=== PATIENT | male | born 1955 | race Caucasian/White ===

== ENCOUNTER → 2019-06-22 13:27 | Outpatient (BNVA) | payer MEDICARE, MEDICAID, SELFPAY | PROVIDERS: Visit Provider Nurse Practitioner Family | DX: R09.89 Other specified symptoms and signs involving the circulatory and respiratory systems (principal); R50.9 Fever, unspecified; R05 Cough; R06.02 Shortness of breath | CPT/HCPCS: 80053; 85025; 87071; 87400; 87635; 87880 ==

== ENCOUNTER → 2019-06-28 10:49 | Outpatient (BNVA) | payer MEDICARE, MEDICAID, SELFPAY | PROVIDERS: Visit Provider Nurse Practitioner Family | DX: R06.02 Shortness of breath (principal); I49.8 Other specified cardiac arrhythmias; W57.XXXA Bitten or stung by nonvenomous insect and other nonvenomous arthropods, initial encounter; B19.20 Unspecified viral hepatitis C without hepatic coma; R07.9 Chest pain, unspecified; F17.200 Nicotine dependence, unspecified, uncomplicated; J30.2 Other seasonal allergic rhinitis | CPT/HCPCS: 80053; 84484; 85025; 85379; 86618; 86666; 86757 ==

== ENCOUNTER → 2019-11-11 16:23 | Outpatient (BNVA) | payer MEDICARE, MEDICAID, SELFPAY | PROVIDERS: Visit Provider Nurse Practitioner Family | DX: M25.561 Pain in right knee (principal) | CPT/HCPCS: 73562 ==

== ENCOUNTER 2020-05-20 08:13 | Day surgery (SDC) | payer MEDICARE, MEDICAID, SELFPAY ==
[2020-05-20] VITALS (22 sets, daily range): BP systolic 76–146; BP diastolic 48–89; PULSE 54–88; RESP 14–26; TEMP 36.3–37.1; O2SAT 94–99; BMI 22.9
--- NOTE | 2020-05-20 08:35 | XRR_ITS ---
PROCEDURE INFORMATION: Exam: XR Chest Exam date and time: 05/20/2020 8:54 AM Age: 65 years old Clinical indication: Chest pain TECHNIQUE: Imaging protocol: XR of the chest Views: 1 view. COMPARISON: ME Chest 1 [place] [id number] 09/06/2018 9:26 AM FINDINGS: Lungs: COPD and interstitial prominence. Pleural spaces: No pleural effusion. Heart/Mediastinum: Normal configuration of the heart. Bones/joints: Degenerative change. XR/XR chest 1V portable [id number] IMPRESSION: COPD and interstitial prominence.
--- NOTE | 2020-05-20 08:38 | ECG_ITS ---
[facility] Test Date: 2020-05-20 Pat Name: Black Rose Department: Room: Gender: Male Medication Tech: : 1955 Requested By: Weston Douglas Order Number: [id number] Reading MD: JANIE PRINCE Measurements Intervals [place] Rate: 76 P: 77 OR: 151 QRS: 74 QRSD: 89 T: 60 QT: 362 QTc: 409 Interpretive Statements SINUS RHYTHM Compared to ECG 09/06/2018 09:15:35 No significant changes Electronically Signed On 05-20-2020 18:45:47 RADIO REPAIR TEACHER by JANIE PRINCE [id number]
[2020-05-20 08:44] LABS: Basophils # 0.1 10^3/uL (0.0-0.1); Basophils % 0.9 %; Eosinophils # 0.1 10^3/uL (0.0-0.8); Eosinophils % 1.6 %; Hematocrit 46.2 % (42.0-52.0); Hemoglobin 15.2 g/dL (11.7-16.6); Lymphocytes # 3.6 10^3/uL (0.8-4.8); Mean Corpuscular HGB Conc 32.9 g/dL (30.0-36.0); Mean Corpuscular Hemoglobin 29.9 pg (28.0-34.0); Mean Corpuscular Volume 90.9 fL (80-94); Mean Platelet Volume 10.9 fL (7.4-10.4); Monocytes # 0.6 10^3/uL (0.2-0.9); Monocytes % 7.9 %; Neutrophils # 3.71 10^3/uL (1.8-7.7); Neutrophils % 45.5 %; Nucleated Red Blood Cells % 0 %; Platelet Count 168 10^3/cmm (130-400); Red Blood Count 5.08 10^6/uL (4.1-5.3); Red Cell Distribution Width 13.2 % (12.1-15.1); White Blood Count 8.1 10^3/uL (4.0-10.0)
--- NOTE | 2020-05-20 08:53 | ED_ITS ---
HPI - Chest Pain General: Chief Complaint: Chest Pain Stated Complaint: chest pain Time Seen by Provider: 05/20/20 08:15 History of Present Illness: HPI narrative: 65-year-old male presents to the emergency room with complaints of chest pain. He is intermittently been having chest pain for the last 3 to 4 days. 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 Since then he has intermittently had chest pain it radiates up in the left side of his neck and left shoulder and the left upper arm he gets nauseous and short of breath with it. He has chest pain at the time that we seen him in the exam room he says it was worse when he was walking into the emergency room initially and a little bit better once he was placed on the cot but is still present. He has no known history of heart disease he is studiously avoided physicians for the last several years. He has hypertension on presentation and is a pack-a-day smoker for greater than 40 years. 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 MD complaint: chest pain Onset (ago): day(s) Timing of current episode: episodic and increasing Onset: during exertion Pain location: substernal and left chest Pain radiation: left arm and left shoulder Severity: moderate Quality: tightness and heaviness Relieving factors: nothing Exacerbating factors: exertion Associated symptoms: Reports diaphoresis, dyspnea, nausea and syncope (near syncopal episode); Deny abdominal pain, fever(s), leg edema, palpitations, sense of impending doom or vomiting Treatment prior to arrival: none Review of Systems Const: Reports: diaphoresis; Denies: fever(s) ENMT: Denies: throat pain, ear or mastoid pain, nasal discharge or nasal congestion Card: Reports: syncope (near syncopal episode); Denies: palpitations Resp: Reports: dyspnea GI: Reports: nausea; Denies: abdominal pain or vomiting : Denies: flank pain, dysuria, urinary frequency or urinary urgency Skin/Breast: Denies: rash or pruritus [facility] ED PFSH: Medical History (Updated 05/20/20 @ 11:18 by Weston Serrano DO) Hepatitis C Stroke due to intracerebral hemorrhage Social History Smoking and tobacco status: current every day smoker cigarettes Packs smoked per day: 1 Years cigarettes smoked: 35 Second hand smoke exposure: No Alcohol intake: never Lives independently: Yes Marital status: History of recent travel: No Current gender identity: Male Physical Exam Const: COMMON NORMALS: no acute distress GENERAL APPEARANCE: cooperative and comfortable ORIENTATION/CONSCIOUSNESS: Yes awake, Yes oriented to person, Yes oriented to place and Yes oriented to time HENMT: COMMON NORMALS: normocephalic, atraumatic and hearing grossly normal bilaterally HEAD & SCALP: normocephalic and atraumatic Neck/C-Spine: COMMON NORMALS: no JVD Resp: COMMON NORMALS: normal respiratory effort, No retractions, No use of accessory muscles and clear to auscultation bilaterally AUSCULTATION: clear to auscultation bilaterally Cardio: COMMON NORMALS: no JVD, regular rate, regular rhythm and No murmurs present (Cardio) RATE: regular rate RHYTHM: regular rhythm GI: COMMON NORMALS: Soft to palpation and No hepatosplenomegaly present AUSCULTATION: Yes normoactive bowel sounds PALPATION: Yes Soft to palpation, No Tenderness to palpation present (GI), No Guarding due to palpation present (GI) and Yes No hepatosplenomegaly present Extremity: COMMON NORMALS: normal to inspection, capillary refill normal, no clubbing, cyanosis or edema, no calf tenderness and no pedal edema Neuro: SENSORIUM/ORIENTATION: Yes oriented to person, Yes oriented to place and Yes oriented to time Skin: COMMON NORMALS: no rashes or lesions noted GENERAL SKIN EXAM: no rashes or lesions noted Course Vital Signs: Vital signs: Vital Signs Temperature 97.3 F L 05/20/20 08:17 Pulse Rate 80 05/20/20 09:33 Respiratory Rate 18 05/20/20 09:33 Blood Pressure 122/89 05/20/20 09:33 Pulse Oximetry 98 05/20/20 09:33 MDM - Chest Pain MDM Narrative: Medical decision making narrative: Patient recurrence of chest pain while at rest EKG shows very slight increase in ST leads in the precordial leads however they are not diagnostic for a STEMI. Reviewed with Dr. Soni he agreed. However patient did respond to nitro and continue to have persistent chest discomfort given his highly suggestive history Dr. Soni is decided to come straight from the emergency room to the Film Cutter. We will admit for melena or obvious pending his results. Lab Data: Labs: Lab Results 05/20/20 05/20/20 05/20/20 Range/Units 08:23 08:23 08:23 WBC 8.1 (4.0-10.0) 10^3/ uL RBC 5.08 (4.1-5.3) 10^6/u L Hgb 15.2 (11.7-16.6) g/dL Hct 46.2 (42.0-52.0) % MCV 90.9 (80-94) fL MCH 29.9 (28.0-34.0) pg MCHC 32.9 (30.0-36.0) g/dL RDW 13.2 (12.1-15.1) % Plt Count 168 (130-400) 10^3/c mm MPV 10.9 H (7.4-10.4) fL Neut % (Auto) 45.5 % Lymph % (Auto) 44.0 % [place] % (Auto) 7.9 % Eos % (Auto) 1.6 % Baso % (Auto) 0.9 % Neut # (Auto) 3.71 (1.8-7.7) 10^3/u L Lymph # (Auto) 3.6 (0.8-4.8) 10^3/u L [place] # (Auto) 0.6 (0.2-0.9) 10^3/u L Eos # (Auto) 0.1 (0.0-0.8) 10^3/u L Baso # (Auto) 0.1 (0.0-0.1) 10^3/u L Nucleated RBC % (a uto) 0 % Nucleated RBCs # 0.0 /100WBC Sodium 136 (136-145) mmol/L Potassium 4.4 (3.5-5.1) mmol/L Chloride 102 (98-107) mmol/L Carbon Dioxide 24 (22-29) mmol/L Anion Gap 14.4 (5-19) BUN 12 (8-23) mg/dL Creatinine 0.7 (0.7-1.2) mg/dL GFR Calculation 113.9 (90-130) mL/min Glucose 121 H (65-115) mg/dL Calculated Osmolal ity 283 L (285-295) mOsm/k g Calcium 9.1 (8.5-10.5) mg/dL Total Bilirubin 0.3 (0.15-1.2) mg/dL AST 32 (0-40) U/L ALT 45 H (0-41) U/L Alkaline Phosphata se 60 (40-130) IU/L Troponin T Baselin e 11 (0-15) ng/L Total Protein 8.1 (6.6-8.7) g/dL Albumin 4.3 (3.5-5.2) g/dL Globulin 3.8 (1.3-4.6) g/dL Discharge Plan Discharge Patient Disposition: Admitted As Inpatient Clinical Impression: Unstable angina, Tobacco abuse Condition: Stable Coding Level of Care Code ED Candy Decorator for [place] Fwd Exam Comprehensive
[2020-05-20 08:59] LABS: Alanine Aminotransferase 45 U/L (0-41); Albumin Level 4.3 g/dL (3.5-5.2); Alkaline Phosphatase 60 IU/L (40-130); Anion Gap 14.4 (5-19); Aspartate Amino Transferase 32 U/L (0-40); Blood Urea Nitrogen 12 mg/dL (8-23); Calcium 9.1 mg/dL (8.5-10.5); Carbon Dioxide 24 mmol/L (22-29); Chloride 102 mmol/L (98-107); Globulin 3.8 g/dL (1.3-4.6); Glomerular Filtration Rate 113.9 mL/min (90-130); Glucose 121 mg/dL (65-115); Osmolality Calculated 283 mOsm/kg (285-295); Potassium 4.4 mmol/L (3.5-5.1); Sodium 136 mmol/L (136-145); Total Bilirubin 0.3 mg/dL (0.15-1.2); Total Protein 8.1 g/dL (6.6-8.7)
[2020-05-20 09:00] LABS: Troponin(5th) Baseline 11 ng/L (0-15)
[2020-05-20] MEDS: morphine 4 mg/mL SDV 1 mL 2 MG IVP (09:01)
[2020-05-20] MEDS: nitroglycerin 1 gm/inch oint Pkt 1 INCH TOPICAL (09:01)
[2020-05-20] MEDS: aspirin 81 mg Chew Tablet 324 MG PO (09:01)
[2020-05-20] MEDS: heparin 5,000 unit/mL INJ 1 mL 4000 UNIT IVP (09:11)
[2020-05-20] MEDS: clopidogrel 300 mg Tablet 600 MG PO (09:12)
--- NOTE | 2020-05-20 09:16 | PC.PHAR ---
pt states he only takes aspirin 81mg daily-pt states he ran out of the 81mg tab so he took the 325mg tab today-pt states he hasnt been to the dr in a long time so doesnt take any medications
[2020-05-20] MEDS: nitroglycerin drip 50 MG/250 ML PREMIX IV (09:33)
--- NOTE | 2020-05-20 09:36 | PC.NURSE ---
nitropaste removed from Pt's chest prior to initiation of NTG gtt
--- NOTE | 2020-05-20 09:44 | PC.NURSE ---
pt prepped for syrup machine laborer at this time
--- NOTE | 2020-05-20 09:48 | XACV_ITS ---
Ht: 183 cm Wt: 77 kg BSA: 1.97 m2 Gender: Male : 1955 Any Known Allergies: No known allergies Exam Priority: Routine Procedure(s): Procedure Description: Diagnostic procedure Procedure Description: Left Heart Catheterization Procedure Description: Left ventriculography Procedure Description: Coronary Angiography Diagnostic Cath Status: Emergency Diagnostic Findings * LM has 0% stenosis. * CX has 0% stenosis. * pLAD to mLAD: Minimal luminal irregularities, BRYON: 3 flow. * pRCA to mRCA: Minimal luminal irregularities, BRYON: 3 flow. * Coronary angiography shows right dominance. Conclusions 1. No significant disease noted in the Left Main, LAD, Circumflex, or RCA coronary arteries. 2. All abdul are normal. 3. Normal left ventricular systolic function. Ejection fraction of 65%. Recommendations * Continue current medical management and risk factor modification. Ventriculography Ejection Fraction: 65.0 % Left Ventriculography Findings: * Normal left ventricle function without any wall motion abnormality. Pressures Phase:Rest AO : 93 / 60 ( 74 ) @ 4:23:00 AM 96 / 59 ( 74 ) @ 4:31:00 AM 95 / 59 ( 74 ) @ 4:31:00 AM 94 / 58 ( 73 ) @ 4:31:00 AM LV : 121 / -11 / @ 4:30:00 AM 99 / 0 / @ 4:31:00 AM 114 / 0 / @ 4:31:00 AM Valves Phase:DefaultPhase AV : 19.0 @ 10:40:51 AM AV Mean Gradient: 22.0 @ 10:40:51 AM Clinical Evaluation EBL: 5mL-10mL Procedural Details Procedure Consent Obtained. Pre-Procedure Time Out. Identified patient by full name and date of as verbalized by the patient/guarantor. Does the consent match the physician's order: Yes. Accurate & Complete Informed Consent: Yes. Inpatient/Outpatient History & Physical on Chart: Yes. If H&P is completed, is and addenduem needed: No; If yes, is the addendum complete: N/A. Visualize and Verify Site with Patient/Guarantor: N/A. Relevant Radiology Images available: N/A. Pre-op teaching completed and patient verbalized understanding. The risks, benefits, and alternatives of sedation and/or procedure were discussed by physician. The patient agrees to continue. Procedure started. [facility] Clinical Fraility Score: 3: Managing Well. Certified Green Building Engineer Indications: ACS <= 24 hours. Chest Pain Symptom Assessment: Typical Angina Symptoms. Cardiovascular Instability: No. Correct patient, site and procedure confirmed by cath team. PERRLA. Strong, equal hand contract officer bilaterally. Lungs clear x 5 lobes. IV Site on Arrival: 18 gauge in the left anticubital. IV Fluids: 0.9% NaCl at KVO. 0 mL infused prior to landscape and yardwork laborer. Pre Procedural Pulses: bilateral radial was 3+. Oxygen started at 2liters/min via nasal canula. bilateral groins was prepped with chloroprep then draped in the usual sterile fashion. Baseline sample Acquired. HR: 73 BPM. Physician arrived. Equipment: 6F - Radial. Cardiac Cath Pack. ACIST Manifold Kit Model BT 2000. Heparinized Saline (2 units/mL), 1000 mL bag. AP pads applied to patient. Physician scrubbed in. Immediate Pre-Procedure Time Out. Correct Patient: Yes; Correct Procedure: Yes; Correct Site: Yes; Correct Patient Position: Yes; Correct Supplies: Yes; Dried Flammable Prep: Yes; Blood Products Available: N/A;. Lidocaine 1% infiltrated to the right radial. Arterial access obtained. A TR 6FR Radial TIG 4.0 110cm was advanced over the wire and used for Left coronary angiography. Multiple views taken of left coronary artery. Catheter redirected to the RCA. Multiple views taken of right coronary artery. Catheter removed over the exchange wire. A 5 portuguese Angled Pig catheter in over wire. EDP Sample taken: LV 121/-12,6; HR: 76 BPM; SpO2: 90%. LV gram performed in JAY @ 10 mL/second for a total of 30 mL. EDP Sample taken: LV 99/0,10; HR: 67 BPM; SpO2: 95%. Pullback taken: LV 114/0,13; AO 96/59(74); Mean: 22mmHg, Peak to Peak: 19mmHg, SEP: 6sec/min; HR: 71 BPM; SpO2: 96%. Catheter removed over the exchange wire. Physician scrubbed out. A TR Band was successful obtaining hemostatsis at the Right Radial artery insertion site. TR band placed. Hemostasis obtained. Post Procedure: Pulses reassessed and unchanged. PERRLA. Strong, equal hand contract officer bilaterally. No VTE prophylaxis required. Medication's Wasted: Lidocaine 1% = 16 mL. Medication's Wasted: Heparin = 4000 units. Medication's Wasted: Nitro = 50 mg. Total IV fluids: 75 mL. Contrast type used: Omnipaque 300 mgI/mL, 500 mL bottle. Post-op diagnosis: normal coronaries. Estimated blood loss: 5mL-10mL. Procedure completed. Patient transferred by bed to 1st floor. Access Site Site: Right Radial artery Sheath Size: 6 Fr Hemostasis Method: TR Band Hemostasis Success: Successful Procedure Medications Start: 10:03 AM Stop: 10:03 AM Medication: Versed Amount: 1 mg Route: I.V. Start: 10:03 AM Stop: 10:03 AM Medication: Fentanyl Amount: 25 mcg Route: I.V. Start: 10:08 AM Stop: 10:08 AM Medication: Versed Amount: 1 mg Route: I.V. Start: 10:09 AM Stop: 10:09 AM Medication: Fentanyl Amount: 25 mcg Route: I.V. Start: 10:14 AM Stop: 10:14 AM Medication: Versed Amount: 1 mg Route: I.V. Start: 10:15 AM Stop: 10:15 AM Medication: Fentanyl Amount: 25 mcg Route: I.V. Start: 10:17 AM Stop: 10:17 AM Medication: Versed Amount: 1 mg Route: I.V. Start: 10:22 AM Stop: 10:22 AM Medication: Versed Amount: 1 mg Route: I.V. Start: 10:22 AM Stop: 10:22 AM Medication: Fentanyl Amount: 25 mcg Route: I.V. Start: 10:28 AM Stop: 10:28 AM Medication: Heparin Amount: 2000 units Route: I.V. Start: 10:28 AM Stop: 10:28 AM Medication: Versed Amount: 1 mg Route: I.V. I, the attending physician, have reviewed and verified all procedure medications. Yes, all medications given per verbal order History/Risk Factors Hypertension: No Dyslipidemia: No Peripheral Arterial Disease (PAD): No Myocardial Infarction (HI): No Obesity: No Renal Disease: No Tobacco Use: Current/Recent(w/in 1 year) Prior Interventions PCI: No CABG: No Valve Surgery: No Report Signatures Finalized by Fe Riojas MD on 05/29/2020 06:44 PM
--- NOTE | 2020-05-20 09:52 | PM.HP ---
Providers/Chief Complaint Chief Complaint: chest pain History of Present Illness Black Rose is a 65 year old male past medical history significant for 50 pack year of continuous tobacco abuse, hypertension does not know any other major medical problem was struggling with chest pain with increased in frequency and duration for the last 1 week upon mild to moderate exertion. This morning when he like to put on his clothes all of a sudden his chest pain became so intense that he passed out. He decided to come to ER. Initial cardiac markers and twelve-lead EKG but not suggestive of acute coronary syndrome however his chest pain relieved with nitroglycerin and comes back again now settled down at nitro drip very suspicious for unstable angina. Due to typical characteristics of chest pain syncope with chest pain and moderate risk for acute coronary syndrome I will proceed with left heart cath and PCI if indicated. Patient has been explained in detail by myself regarding all risk benefit and alternative for the procedure. He understand the risk for urgent emergent bypass surgery, arrhythmia, major minor bleed, stroke and worse case scenario . He told me that he will be able to take dual antiplatelet therapy. Review of Systems Const: Reports: diaphoresis; Denies: fever(s) ENMT: Denies: throat pain, ear or mastoid pain, nasal discharge or nasal congestion Card: Reports: syncope (near syncopal episode); Denies: palpitations Resp: Reports: dyspnea GI: Reports: nausea; Denies: abdominal pain or vomiting : Denies: flank pain, dysuria, urinary frequency or urinary urgency Musc: Denies: joint warmth Skin/Breast: Denies: rash or pruritus Medications/Allergies Home Medications Medication Instructions Recorded Confirmed Last Taken Type aspirin 325 mg PO ONCE 05/20/20 05/20/20 05/20/20 06:30 History aspirin [Aspir-81] 81 mg PO DAILY 05/20/20 05/20/20 Unknown History Allergies Allergy/AdvReac Type Severity Reaction Status Date / Time No Known Allergies Allergy Verified 05/20/20 09:16 PFSH Acute PFSH: Medical History (Updated 05/20/20 @ 10:03 by Fe Riojas MD) Hepatitis C Social History Smoking and tobacco status: current every day smoker cigarettes Packs smoked per day: 1 Years cigarettes smoked: 35 Second hand smoke exposure: No Alcohol intake: never Lives independently: Yes Marital status: History of recent travel: No Current gender identity: Male Vitals/I&O/Wt Last Vital Signs Temp 97.3 F L 05/20/20 08:17 Pulse 80 05/20/20 09:33 Resp 18 05/20/20 09:33 BP 122/89 05/20/20 09:33 Pulse Ox 98 05/20/20 09:33 Weight last 48 hrs Weight 169 lb Physical Exam Narrative: EXAM NARRATIVE: GENERAL: Patient is alert, awake and oriented x3. NECK: No jugular vein distension. HEENT: No cyanosis. No icterus. No pallor. HEART: Regular S1 and S2. No murmur, rub or gallop. LUNGS: Clear to auscultate bilaterally. ABDOMEN: Soft, nontender and nondistended. Positive bowel sounds. No guarding, rebound or tenderness. CENTRAL NERVOUS SYSTEM: Grossly nonfocal. EXTREMITIES: Lower extremities without edema bilaterally. Data : 05/20/20 08:23 05/20/20 08:23 A&P Assessment and plan (1) Chest pain: Characteristics of chest pain along with syncope with increased frequency and duration is suspicious for unstable angina. I will proceed with urgent angiogram and PCI if indicated. Patient has been loaded with 600 mg of Plavix aspirin and given heparin 4000 units. Further plan will be advised as per progress of the patient. Status: Acute Qualifiers: Chest pain type: unspecified Qualified Code(s): R07.9 - Chest pain, unspecified (2) Hepatitis C: He had treatment for hepatitis C I do not have any record for that. Status: Acute Qualifiers: Viral hepatitis chronicity: chronic Hepatic coma status: without hepatic coma Qualified Code(s): B18.2 - Chronic viral hepatitis C Attestations Medical Necessity Statement*: Patient is under observation for 24 hours. 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
--- NOTE | 2020-05-20 09:54 | P.CONIM_ITS ---
Providers/Reason For Consult Consulting Physican/Specialty*: Dr. Riojas, cardiology Reason for Consult*: Medical management. Attending Physician: Fe Riojas MD History of Present Illness History of Present Illness Black Rose is a 65 year old male presents to emergency department with off-and-on chest pain that initially started approximate 2 weeks ago and patient started taking 1 or 2 tablets of baby aspirin a day. Pain was described as exertional, substernal pressure-like with radiation to his neck and left shoulder arm. Approximately 1 week ago he had episodes of severe chest pain associated with nausea, diaphoresis and shortness of breath. 2 days ago he had similar episode when trying to load bull through gait and was unable to hold pressure and collapsed. Reports that he went home and spend in his bed 2 days. He would get severe pain with minimal movements. This morning he woke up and again collapsed and this time presented to ER. He took 325 mg aspirin this morning. In ER he was found to have very minimal, nonspecific what appeared to be ST elevation changes on EKG and continue to have chest pain in ER therefore patient is being taken to [facility] by Dr. Riojas for diagnosis of unstable angina. Past medical history significant for brain tumor and aneurysm requiring several surgical procedures/interventions in 2000. He had brain bleed related CVA at that time. Reports that occasionally he gets emotional and cries because of it. Denies being diabetic. Smokes 1 pack/day since age 32 and prior to that smoked only half pack per day since young age. Denies alcohol or illicit drug use. He is . His mother had cancer of the leg but he could not tell me any specifics. His father at age 27 from a airplane crash. 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 Review of Systems Const: Denies: fever(s) or chills Eyes: Denies: change in vision ENMT: Denies: throat pain or change in hearing Card: Reports: chest pain; Denies: edema or lightheadedness Resp: Denies: dyspnea or productive cough GI: Reports: nausea; Denies: abdominal pain, vomiting, dysphagia, diarrhea, constipation, hematochezia or melena : Reports: urinary frequency and urinary urgency; Denies: dysuria Musc: Denies: joint pain or joint swelling Skin/Breast: Denies: rash or erythema Neuro: Denies: headache(s) or weakness in extremities Psych: Denies: depression or suicidal ideation Endo: Denies: excessive sweating Rakesh/Lymph: Denies: easy bleeding or tender lymph nodes All/Imm: Denies: throat swelling Meds/Allergies Home Medications and Allergies Home Medications Medication Instructions Recorded Confirmed Last Taken Type aspirin 325 mg PO ONCE 05/20/20 05/20/20 05/20/20 06:30 History aspirin [Aspir-81] 81 mg PO DAILY 05/20/20 05/20/20 Unknown History Allergies Allergy/AdvReac Type Severity Reaction Status Date / Time No Known Allergies Allergy Verified 05/20/20 09:16 Current Medications Current Medications Generic Name Dose Route Start Last Admin Trade Name Freq PRN Reason Stop Dose Admin Nitroglycerin/Dextrose 50 mg in 250 mls @ 0 mls/hr 05/20/20 09:30 05/20/20 09:33 Nitroglycerin Drip IV 5 mcg/min .Q0M YOJANA 1.5 mls/hr Administration Protocol Per Protocol PFSH Acute PFSH: Medical History (Updated 05/20/20 @ 10:10 by Constantine Cortes MD) Hepatitis C Stroke due to intracerebral hemorrhage Social History Smoking and tobacco status: current every day smoker cigarettes Packs smoked per day: 1 Years cigarettes smoked: 35 Second hand smoke exposure: No Alcohol intake: never Lives independently: Yes Marital status: History of recent travel: No Current gender identity: Male Vitals/I&O/Wt Last Vital Signs Temp 97.3 F L 05/20/20 08:17 Pulse 80 05/20/20 09:33 Resp 18 05/20/20 09:33 BP 122/89 05/20/20 09:33 Pulse Ox 98 05/20/20 09:33 Weight last 48 hrs Weight 76.657 kg Physical Exam Const: COMMON NORMALS: no acute distress, patient oriented x3 and alert HENMT: COMMON NORMALS: normocephalic and atraumatic HEAD & SCALP: normocephalic and atraumatic Eye: COMMON NORMALS: EOMs intact bilaterally, conjunctivae normal and no scleral icterus CONJUNCTIVA: Yes conjunctivae normal Neck/C-Spine: COMMON NORMALS: no lymphadenopathy and no meningeal signs Lymph: LYMPHATIC: no lymphadenopathy noted Chest: COMMONS NORMALS: normal palpation of entire chest wall Resp: COMMON NORMALS: No use of accessory muscles and clear to auscultation bilaterally AUSCULTATION: clear to auscultation bilaterally Cardio: COMMON NORMALS: regular rate, regular rhythm and No murmurs present (Cardio) RATE: regular rate RHYTHM: regular rhythm OTHER: No lower extremity edema GI: COMMON NORMALS: Soft to palpation and non-tender PALPATION: Yes Soft to palpation RECTAL EXAM: Yes deferred : COMMON NORMALS: Yes no CVA tenderness BLADDER/KIDNEY EXAM: Yes no CVA tenderness Back/Pelvis: COMMON NORMALS: no CVA tenderness and thoracic and lumbar spine normal to inspection Extremity: COMMON NORMALS: normal to inspection and capillary refill normal Neuro: COMMON NORMALS: patient oriented x3 and no focal motor deficits SENSORIUM/ORIENTATION: Yes alert MENINGEAL SIGNS: Yes no meningeal signs Psych: COMMON NORMALS: mental status grossly normal, Normal thought process present and cooperative THOUGHT PROCESS: Normal thought process present Skin: COMMON NORMALS: no rashes or lesions noted GENERAL SKIN EXAM: no rashes or lesions noted A&P Assessment and plan (1) Unstable angina: Status: Acute (2) Tobacco abuse: Status: Acute Additional A&P Information PLAN: Awaiting coronary angiogram Continue with aspirin and statin and Plavix if needed Discussed with patient regarding importance of smoking cessation. Patient voiced understanding. Will discuss again before discharge. Check lipid profile in a.m. Add Protonix for GI protection Consult Attestations Medical Necessity Statement: Patient with unstable angina requires hospitalization for monitoring and treatment. I expect patient will require less than two midnights. Time Spent in Patient Care: Greater than 35 minutes Coding Level of Care Code Acute Limo Driver for [place] Joy Diagnoses Unstable angina I20.0 Tobacco abuse Z72.0
--- NOTE | 2020-05-20 10:38 | ECG_ITS ---
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
--- NOTE | 2020-05-20 11:18 | PC.NURSE ---
received into room 102 from cemetery laborer at 1055.report received.pt is drowsy,but easily awakened.denies pain.sr on monitor.right wrist with tr band on and inflated.right hand is warm to touch and with brisk capillary refill.palpable radial pulse distal to tr band. no hematoma noted.instructed in activity restrictions s/p radial artery procedure...and instructed to notify staff for any pain,bleeding,numbness...or for any concerns at all.pt verb understanding of instructions.
[2020-05-20] MEDS: HYDROcodone-acetaminophen 5-325 mg Tablet 1 TAB PO ×2 (12:53→18:10)
--- NOTE | 2020-05-20 13:30 | PC.NURSE ---
TR Band off No bleeding, hematoma, swelling. Radial pulse is palpable +3. Small bruising noted around wrist area. Pt is educated on activity restrictions on right hand. Pt verbalizes understanding. Call light within reach.
--- NOTE | 2020-05-20 14:38 | ECG_ITS ---
[facility] Test Date: 2020-05-20 Pat Name: Black Rose Department: Room: Gender: Male Channel Opener: : 1955 Requested By: Weston Douglas Order Number: [id number] Reading MD: JANIE PRINCE Measurements Intervals [place] Rate: 65 P: 66 IN: 164 QRS: 43 QRSD: 85 T: 28 QT: 358 QTc: 374 Interpretive Statements SINUS RHYTHM Compared to ECG 05/20/2020 08:19:11 No significant changes Electronically Signed On 05-20-2020 18:47:32 FISHER HAND LINE by JANIE PRINCE [id number]
[2020-05-20] MEDS: ALPRAZolam 0.25 mg Tablet PO (18:10)
[2020-05-20] MEDS: pantoprazole DR 40 mg Tablet PO (18:11)
--- NOTE | 2020-05-20 19:20 | CTR_ITS ---
PROCEDURE INFORMATION: Exam: CT Angiography Chest With Contrast Exam date and time: 05/20/2020 7:35 PM Age: 65 years old Clinical indication: Chest pain; Additional info: Severe chest pain TECHNIQUE: Imaging protocol: Computed tomographic angiography of the chest with contrast. 3D rendering (Not supervised by radiologist): MIP reconstructed images were created by the technologist. Radiation optimization: All CT scans at this facility use at least one of these dose optimization techniques: automated exposure control; mA and/or kV adjustment per patient size (includes targeted exams where dose is matched to clinical indication); or iterative reconstruction. Contrast material: OMNI 350; Contrast volume: 95 ml; Contrast route: INTRAVENOUS (IV); COMPARISON: CR (CHEST, ) 05/20/2020 8:45 AM RADIATION DOSE METRICS: Total DLP (mGy-cm): 663.61 FINDINGS: Pulmonary arteries: No pulmonary artery embolism identified. Aorta: Mild aortic arch atherosclerotic calcification without ectasia. The pulmonary artery phase bolus is suboptimal for imaging of the aorta and systemic arteries for intimal dissection in the absence of displaced intimal calcifications. No thoracic aortic aneurysm. Thyroid: The partially imaged bilateral thyroid lobes are unremarkable. Lungs: Right upper and lower lobe calcified pulmonary parenchymal granulomas. Mild-moderate apical paraseptal emphysema bilaterally. Centrilobular emphysematous focus right lower lobe measuring 8.3 mm, similar focus on the left measuring 12.8 mm. Left parahilar paraseptal bleb measuring 2.5 cm. A 5.0 x 2.9 x 6.2 mm noncalcified pulmonary nodule is noted in the medial apical segment of the right upper lobe (LOC 12.5). Pleural spaces: No pneumothorax. No pleural effusion. Heart: No pericardial effusion. Mitral annular calcification is present. LAD and RCA calcified coronary atherosclerosis. Mediastinal space: Right hilar granulomatous josé miguel calcifications are present. Lymph nodes: No enlarged lymph nodes. Bones/joints: Unremarkable. No acute fracture. Soft tissues: Unremarkable.
[2020-05-20] MEDS: iohexol 350 mg/mL 100 mL Btl IV (20:11)
[2020-05-20] MEDS: temazepam 15 mg Capsule PO (20:45)
[2020-05-20] MEDS: atorvastatin 40 mg Tablet 80 MG PO (20:45)
--- NOTE | 2020-05-20 21:45 | PC.NURSE ---
PT IS RESTING IN BED. PT C/O 5/10 PAIN NON SPECIFIC. PRN TYLENOL WAS REFUSED. PT WAS TAKEN TO CT VIA WHEELCHAIR BY MATERIAL STOCKKEEPER YARD. PT CAME BACK ASKING FOR SOMETHING TO HELP SLEEP. PRN RESTORIL WAS GIVEN. PRESSURE DRESSING TO RIGHT WRIST IS C/D/I. PULSE PALPABLE DISTAL OF INCISION SITE. WILL CONTINUE TO MONITOR.
[2020-05-21 00:08] VITALS: BP 91/61; PULSE 60; RESP 19; TEMP 37.1; O2SAT 93
[2020-05-21 03:18] VITALS: BP 92/53; PULSE 78; RESP 18; TEMP 37.7; O2SAT 97
[2020-05-21] MEDS: HYDROcodone-acetaminophen 5-325 mg Tablet 1 TAB PO (04:35)
--- NOTE | 2020-05-21 04:36 | PC.NURSE ---
PT C/O 05/24 CHEST PAIN. CHEST PAIN IS NON-RADIATING. PT STATES THAT IT IS MORE JUST LIKE HIS BACK HURTS BUT ITS HIS CHEST. PT STATES ITS MORE LIKE SKELETAL PAIN. WILL CONTINUE TO MONITOR.
[2020-05-21 05:31] LABS: Basophils # 0.1 10^3/uL (0.0-0.1); Basophils % 0.8 %; Eosinophils # 0.1 10^3/uL (0.0-0.8); Eosinophils % 1.9 %; Hematocrit 42.7 % (42.0-52.0); Hemoglobin 14.2 g/dL (11.7-16.6); Lymphocytes # 3.4 10^3/uL (0.8-4.8); Lymphocytes % 46.3 %; Mean Corpuscular HGB Conc 33.3 g/dL (30.0-36.0); Mean Corpuscular Hemoglobin 29.8 pg (28.0-34.0); Mean Corpuscular Volume 89.5 fL (80-94); Mean Platelet Volume 11.1 fL (7.4-10.4); Monocytes # 0.6 10^3/uL (0.2-0.9); Monocytes % 8.6 %; Neutrophils # 3.09 10^3/uL (1.8-7.7); Neutrophils % 42.3 %; Nucleated Red Blood Cells % 0 %; Platelet Count 156 10^3/cmm (130-400); Red Blood Count 4.77 10^6/uL (4.1-5.3); Red Cell Distribution Width 13.3 % (12.1-15.1); White Blood Count 7.3 10^3/uL (4.0-10.0)
[2020-05-21 05:48] VITALS: PULSE 64
--- NOTE | 2020-05-21 05:49 | PC.NURSE ---
PT IS RESTING IN BED. PT DENIES PAIN AT THIS TIME. DRESSING TO RIGHT WRIST IS C/D/I. PULSE IS PALPABLE DISTAL OF INCISION. WILL CONTINUE TO MONITOR.
[2020-05-21 05:57] LABS: Alanine Aminotransferase 58 U/L (0-41); Albumin Level 3.9 g/dL (3.5-5.2); Alkaline Phosphatase 56 IU/L (40-130); Anion Gap 12.2 (5-19); Aspartate Amino Transferase 46 U/L (0-40); Blood Urea Nitrogen 11 mg/dL (8-23); Calcium 8.8 mg/dL (8.5-10.5); Carbon Dioxide 23 mmol/L (22-29); Chloride 106 mmol/L (98-107); Chol HDL Ratio 3.84 mg/dL (1.0-5.00); Cholesterol 123 mg/dL (0-200); Globulin 3.2 g/dL (1.3-4.6); Glomerular Filtration Rate 113.9 mL/min (90-130); Glucose 91 mg/dL (65-115); HDL Cholesterol 32 mg/dL (60-100); LDL Cholesterol Calculated 66 mg/dL (50-129); LDL HDL Ratio 2.06 RATIO (0.00-3.22); Osmolality Calculated 283 mOsm/kg (285-295); Potassium 4.2 mmol/L (3.5-5.1); Sodium 137 mmol/L (136-145); Total Bilirubin 0.6 mg/dL (0.15-1.2); Total Protein 7.1 g/dL (6.6-8.7); Triglycerides 123 mg/dL (0-150)
[2020-05-21 07:22] VITALS: BP 108/74; PULSE 66; RESP 12; TEMP 36.7; O2SAT 96
[2020-05-21] MEDS: aspirin 81 mg EC Tablet PO (08:16)
[2020-05-21] MEDS: pantoprazole DR 40 mg Tablet PO (08:16)
--- NOTE | 2020-05-21 08:19 | PM.DCS ---
Discharge Providers Date of Discharge: May 21, 2020 Attending Provider at Discharge: Constantine Cortes MD Diagnoses at Discharge Discharge Diagnosis (1) Unstable angina: Status: Acute Permanent problem details: Ruled out (2) Tobacco abuse: Status: Acute (3) Chest pain: Status: Acute Permanent problem details: This appears to be musculoskeletal in origin and less likely GI Qualifiers: Chest pain type: unspecified Qualified Code(s): R07.9 - Chest pain, unspecified (4) Hepatitis C: Status: Acute Qualifiers: Viral hepatitis chronicity: chronic Hepatic coma status: without hepatic coma Qualified Code(s): B18.2 - Chronic viral hepatitis C (5) COPD (chronic obstructive pulmonary disease): Status: Acute Reason for Visit Reason for Visit: chest pain Hospital Course Hospital Course Patient presented with severe chest pain which appeared to be mostly exertional. Unstable angina was highly suspected and patient was taken to [facility] Ripsaw Operator. He did not have any significant coronary artery disease requiring intervention. Patient had CT of chest showing no evidence of PE or dissection. Patient's pain felt to be musculoskeletal in origin and possibly GI in etiology. We will discontinue aspirin for now and start patient on Protonix. I will also give patient oxycodone for pain control as needed. Patient does not want Tylenol because of underlying hepatitis C. I will request outpatient follow-up with Dr. Valdivia to be evaluated for hep C treatment. I will also request outpatient follow-up with Dr. Richmond for treatment of COPD. Patient is not interested in smoking cessation. Patient was told to discuss with primary care physician if he is ready to quit smoking and needs pharmacological help. This morning patient denies shortness of breath or chest pain reports that he is ready to go home as he has 150 cattles waiting for him. Physical Exam Narrative: EXAM NARRATIVE: Lungs are clear and heart is regular. Abdomen is soft and nontender with positive bowel sounds. No lower extremity edema Discharge Data Data Completed and Pending: Completed Studies During Hospitalization Category Date Time Status CT angio chest PE protcl 02002 Rout ine Cat Scan 05/20/20 19:[address] angio chest PE protcl [id number] Rout ine Cat Scan 05/21/20 12:02 Completed XR chest 1V alexi ble [id number] Stat Exams 05/20/20 08:35 Completed Pending at discharge Category Date Time Status PRODUCT SAFETY PROFESSIONAL request for service Routin e Exams 05/20/20 09:48 Ordered Complete Blood Co unt w/Auto AM LABS Lab 05/22/20 04:00 Ordered Complete Blood Co unt w/Auto AM LABS Lab 05/23/20 04:00 Ordered Comprehensive Met abolic Panel AM LA BS Lab 05/22/20 04:00 Ordered Comprehensive Met abolic Panel AM LA BS Lab 05/23/20 04:00 Ordered Magnesium AM LABS Lab 05/22/20 04:00 Ordered Magnesium AM LABS Lab 05/23/20 04:00 Ordered Labs from last 24 hours 05/21/20 05/21/20 05/20/20 04:24 04:24 08:23 WBC 7.3 RBC 4.77 Hgb 14.2 Hct 42.7 MCV 89.5 MCH 29.8 MCHC 33.3 RDW 13.3 Plt Count 156 MPV 11.1 H Neut % (Auto) 42.3 Lymph % (Auto) 46.3 [place] % (Auto) 8.6 Eos % (Auto) 1.9 Baso % (Auto) 0.8 Neut # (Auto) 3.09 Lymph # (Auto) 3.4 Chicot # (Auto) 0.6 Eos # (Auto) 0.1 Baso # (Auto) 0.1 Nucleated RBC % (a uto) 0 Nucleated RBCs # 0.0 Sodium 137 Potassium 4.2 Chloride 106 Carbon Dioxide 23 Anion Gap 12.2 BUN 11 Creatinine 0.7 GFR Calculation 113.9 Glucose 91 Calculated Osmolal ity 283 L Calcium 8.8 Magnesium 2.0 Total Bilirubin 0.6 AST 46 H ALT 58 H Alkaline Phosphata se 56 Troponin T Baselin e 11 Total Protein 7.1 Albumin 3.9 Globulin 3.2 Triglycerides 123 Cholesterol 123 LDL Cholesterol, C alc 66 HDL Cholesterol 32 L LDL/HDL Ratio 2.06 Cholesterol/HDL Ra leny 3.84 05/20/20 05/20/20 08:23 08:23 WBC 8.1 RBC 5.08 Hgb 15.2 Hct 46.2 MCV 90.9 MCH 29.9 MCHC 32.9 RDW 13.2 Plt Count 168 MPV 10.9 H Neut % (Auto) 45.5 Lymph % (Auto) 44.0 Chicot % (Auto) 7.9 Eos % (Auto) 1.6 Baso % (Auto) 0.9 Neut # (Auto) 3.71 Lymph # (Auto) 3.6 Chicot # (Auto) 0.6 Eos # (Auto) 0.1 Baso # (Auto) 0.1 Nucleated RBC % (a uto) 0 Nucleated RBCs # 0.0 Sodium 136 Potassium 4.4 Chloride 102 Carbon Dioxide 24 Anion Gap 14.4 BUN 12 Creatinine 0.7 GFR Calculation 113.9 Glucose 121 H Calculated Osmolal ity 283 L Calcium 9.1 Magnesium Total Bilirubin 0.3 AST 32 ALT 45 H Alkaline Phosphata se 60 Troponin T Baselin e Total Protein 8.1 Albumin 4.3 Globulin 3.8 Triglycerides Cholesterol LDL Cholesterol, C alc HDL Cholesterol LDL/HDL Ratio Cholesterol/HDL Ra leny Vitals: Last Vital Signs Temp 98.0 F 05/21/20 07:22 Pulse 66 05/21/20 07:22 Resp 12 05/21/20 07:22 BP 108/74 05/21/20 07:22 Pulse Ox 96 05/21/20 07:22 Discharge Plan Discharge Patient Disposition: Home Condition: Stable Prescriptions: New oxycodone 5 mg tablet 2.5 mg PO Q8H PRN (Reason: pain) Qty: 10 RF: 0 pantoprazole 40 mg Tablet,Delayed Release (Dr/Ec) 40 mg PO DAILY Qty: 30 RF: 0 Discontinued aspirin 325 mg Tablet 325 mg PO ONCE RF: 0 Aspir-81 81 mg Tablet,Delayed Release (Dr/Ec) 81 mg PO DAILY RF: 0 Discharge Orders: Discharge Order (Routine); Ordered 05/21/20 Ordered By: Constantine Cortes Referrals: Lamont Valdivia MD [Physician] - 1 week Datar,Jayden Alanis MD [Physician] - 1 week Discharge Diet: Advance as tolerated Discharge Activity: Resume usual activity and Increase activity as tolerated Patient Instructions: Oxycodone/Acetaminophen (By mouth), Pantoprazole (By mouth), Angina (DC), How to Stop Smoking (DC), Post Angiogram Home Care Instructions Activity Restrictions/Additional Instructions: Please call your doctor or present to emergency department if your condition worsens or you develop diarrhea, lightheadedness, fatigue or see blood in your stool or black stool. Please follow-up with Dr. Valdivia to be evaluated for treatment of hepatitis C. Please discuss with your doctor if you decide to quit smoking and need pharmacological help. Please note that I am requesting outpatient pulmonary follow-up as you have evidence of significant chronic obstructive pulmonary disease. Discharge Attestations Time Spent in Discharge Care*: greater than 30 min Quality Metrics Clinical Quality Measures During this hospital stay, did patient experience: None Coding Level of Care Code Acute Jewelry Polisher for g Fwd Diagnoses Unstable angina I20.0 Tobacco abuse Z72.0 Chest pain R07.9 Chest pain type: unspecified Hepatitis C B18.2 Viral hepatitis chronicity: chronic Hepatic coma status: without hepatic coma COPD (chronic obstructive pulmonary disease) J44.9
[2020-05-21 08:54] VITALS: BP 108/74; PULSE 66; RESP 12; TEMP 36.7; O2SAT 96
--- NOTE | 2020-05-21 09:12 | PC.NURSE ---
Discharge instructions given per the physician's orders. Patient verbalized understanding of teaching and medication changes and did not have any further questions. IV has been removed. Patient dressed self. No further needs identified at this time.
--- NOTE | 2020-05-21 12:02 | CTR_ITS ---
NOTE: Report was unsigned for reason: Order was edited. Original Signature date and time was: 05/20/20202031 PROCEDURE INFORMATION: Exam: CT Angiography Chest With Contrast Exam date and time: 05/20/2020 12:49 PM Age: 65 years old Clinical indication: Chest pain; Prior surgery; Surgery date: Post-operative (0-2 days); Surgery type: Cath done today; Additional info: Severe chest pain TECHNIQUE: Imaging protocol: Computed tomographic angiography of the chest with contrast. 3D rendering (Not supervised by radiologist): MIP and/or 3D reconstructed images were created by the technologist. Radiation optimization: All CT scans at this facility use at least one of these dose optimization techniques: automated exposure control; mA and/or kV adjustment per patient size (includes targeted exams where dose is matched to clinical indication); or iterative reconstruction. Contrast material: OMNI 350; Contrast volume: 95 ml; Contrast route: INTRAVENOUS (IV); COMPARISON: CR (CHEST, ) 05/20/2020 8:45 AM RADIATION DOSE METRICS: Total DLP (mGy-cm): 663.61 FINDINGS: Pulmonary arteries: No pulmonary embolus or aortic dissection. Aorta: Unremarkable. No aortic aneurysm. No aortic dissection. Lungs: Severe paraseptal emphysema. Mild centrilobular emphysema. Pleural spaces: Unremarkable. No pneumothorax. No pleural effusion. Heart: Mild calcified coronary artery disease. Lymph nodes: Shotty mediastinal adenopathy which may be reactive. Calcified right hilar nodes and/or mediastinal nodes and/or lung granulomas consistent with old granulomatous disease. Gallbladder and bile ducts: Surgical clips in the gallbladder fossa consistent with cholecystectomy. Bones/joints: Unremarkable. No acute fracture. Soft tissues: Unremarkable. [facility] CT/CT angio chest PE protcl [id number] IMPRESSION: 1. No pulmonary artery embolism identified. 2. Pulmonary emphysema. 3. Noncalcified right upper lobe pulmonary nodule. For patients at low risk (minimal or absent history of smoking and of other known risk factors), no routine follow-up is indicated. For patients at high risk (history of smoking or of other known risk factors), consider optional CT at 12 months. (Rosy et al., Fleischner Society, 2017). 4. Coronary atherosclerosis. Radiation Dose CTDIVOL = (mGy): DLP = 663.61 (mGy-cm)
== END 2020-05-21 09:15 | disposition home or self-care (01) ==
LOC: ER 08:36 → CCL 09:42 → CSU 11:18
PROVIDERS: Internal Medicine; Emergency Provider Family Medicine; Visit Provider Internal Medicine Cardiovascular Disease
DX: R07.9 Chest pain, unspecified (principal); B18.2 Chronic viral hepatitis C; F17.210 Nicotine dependence, cigarettes, uncomplicated; J44.9 Chronic obstructive pulmonary disease, unspecified; Z86.73 Personal history of transient ischemic attack (TIA), and cerebral infarction without residual deficits
CPT/HCPCS: 36415; 71045; 71275; 80053; 80061; 83735; 84484; 85025; 93005; 93452; 99291; C1769; C1887; C1894; J1644; J2250; J2270; J3010; J3490; J7030; Q9967

== ENCOUNTER 2020-05-28 09:53 | Emergency (ER) | payer MEDICARE, MEDICAID, SELFPAY ==
--- NOTE | 2020-05-28 09:55 | ECG_ITS ---
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 Measurements Intervals [place] Rate: 69 P: 76 SC: 163 QRS: 74 QRSD: 86 T: 71 QT: 345 QTc: 371 Interpretive Statements SINUS RHYTHM Compared to ECG 05/20/2020 14:56:15 Sinus bradycardia no longer present Electronically Signed On 05-28-2020 22:42:30 CDT by Adan Frye M.D. [id number] f
--- NOTE | 2020-05-28 09:55 | XRR_ITS ---
PROCEDURE INFORMATION: Exam: XR Chest Exam date and time: 05/28/2020 10:11 AM Age: 65 years old Clinical indication: Chest pain; Additional info: Cp TECHNIQUE: Imaging protocol: XR of the chest Views: 1 view. COMPARISON: CR (CHEST, ) 05/20/2020 8:45 AM FINDINGS: Lungs: There is mild pulmonary interstitial fibrosis. There is no airspace consolidation or pneumonia. Pleural spaces: Unremarkable. No pleural effusion. No pneumothorax. Heart/Mediastinum: Unremarkable. No cardiomegaly. Bones/joints: Unremarkable. XR/XR chest 1V portable [id number] IMPRESSION: Mild interstitial pulmonary fibrosis. No acute abnormality.
[2020-05-28 09:56] VITALS: BP 124/83; PULSE 91; RESP 16; TEMP 36.8; O2SAT 96; BMI 24.4
--- NOTE | 2020-05-28 10:04 | ED_ITS ---
HPI - Abdominal Pain General: Chief Complaint: Abdominal Pain Stated Complaint: CHEST PAIN Time Seen by Provider: 05/28/20 09:56 Source: patient Mode of arrival: ambulatory Limitations: no limitations History of Present Illness: HPI narrative: 65-year-old male who states he has been having abdominal pain over the last 2 to 3 days. He states been a very sharp pain he believes that he has an umbilical hernia. He states that he is cannot at his bellybutton and is quite painful to touch. He states he is also been having chest pain for over a week. He was admitted last week for chest pain and had a cardiac cath that was negative. He states that pain has not changed has been the same. He has had a CT of his chest that showed no acute abnormalities. Associated Symptoms: Denies chills, diarrhea, dysuria, fever(s), nausea and vomiting Review of Systems Const: Denies: fever(s), chills, body aches or change in appetite Eyes: Denies: blurry vision or eye discomfort ENMT: Denies: throat pain or dental pain Card: Reports: chest pain Resp: Denies: dyspnea GI: Reports: abdominal pain; Denies: nausea, vomiting or diarrhea : Denies: dysuria Musc: Denies: neck pain or back pain Skin/Breast: Denies: rash Neuro: Denies: headache(s) Psych: Denies: depression Rakesh/Lymph: Denies: easy bruising All/Imm: Denies: urticaria PFS ED PFSH: Medical History (Updated 05/28/20 @ 11:56 by Danuta Vegas MD) Hepatitis C Stroke due to intracerebral hemorrhage Social History Smoking and tobacco status: current every day smoker cigarettes Packs smoked per day: 1 Years cigarettes smoked: 35 Second hand smoke exposure: No Alcohol intake: never Lives independently: Yes Marital status: History of recent travel: No Current gender identity: Male Physical Exam Const: COMMON NORMALS: no acute distress, patient oriented x3 and healthy appearing HENMT: COMMON NORMALS: normocephalic and atraumatic HEAD & SCALP: normocephalic and atraumatic Eye: COMMON NORMALS: Equal, round and reactive pupils present and EOMs intact bilaterally PUPIL: Yes Equal, round and reactive pupils present Neck/C-Spine: COMMON NORMALS: full ROM and supple Chest: COMMONS NORMALS: normal inspection of the chest and normal palpation of entire chest wall Resp: COMMON NORMALS: normal respiratory effort, No retractions, No use of accessory muscles and clear to auscultation bilaterally AUSCULTATION: clear to auscultation bilaterally Cardio: COMMON NORMALS: regular rate, regular rhythm and No murmurs present (Cardio) RATE: regular rate RHYTHM: regular rhythm GI: COMMON NORMALS: Normal to inspection, nondistended, normoactive bowel sounds present and Soft to palpation PALPATION: Yes Soft to palpation OTHER: Umbilical hernia noted that is tender to touch that was easily reduced Extremity: COMMON NORMALS: normal to inspection and full ROM Neuro: COMMON NORMALS: patient oriented x3, moves all extremities and no focal motor deficits Psych: COMMON NORMALS: mental status grossly normal, Normal thought process present and cooperative THOUGHT PROCESS: Normal thought process present Skin: COMMON NORMALS: no rashes or lesions noted and no wounds GENERAL SKIN EXAM: no rashes or lesions noted Course Vital Signs: Vital signs: Vital Signs Temperature 98.2 F 05/28/20 09:56 Pulse Rate 69 05/28/20 11:01 Respiratory Rate 14 05/28/20 11:01 Blood Pressure 100/62 05/28/20 11:01 Pulse Oximetry 96 05/28/20 11:01 MDM - Abdominal Pain MDM Narrative: Medical decision making narrative: Patient presents with abdominal pain did have a umbilical hernia that I was able to reduce. After it was reduced he felt much improved. Patient CT scan is normal. His troponin here is normal as well. He had a recent cardiac cath and had no signs of blockage. He is stable for discharge and is to follow-up with PCP and return if worsening. Lab Data: Labs: Lab Results 05/28/20 05/28/20 05/28/20 Range/Units 10:15 10:15 10:15 WBC 7.6 (4.0-10.0) 10^3/ uL RBC 4.90 (4.1-5.3) 10^6/u L Hgb 14.8 (11.7-16.6) g/dL Hct 44.7 (42.0-52.0) % MCV 91.2 (80-94) fL MCH 30.2 (28.0-34.0) pg MCHC 33.1 (30.0-36.0) g/dL RDW 13.4 (12.1-15.1) % Plt Count 167 (130-400) 10^3/c mm MPV 11.0 H (7.4-10.4) fL Neut % (Auto) 46.5 % Lymph % (Auto) 42.9 % [place] % (Auto) 7.8 % Eos % (Auto) 1.6 % Baso % (Auto) 0.8 % Neut # (Auto) 3.54 (1.8-7.7) 10^3/u L Lymph # (Auto) 3.3 (0.8-4.8) 10^3/u L [place] # (Auto) 0.6 (0.2-0.9) 10^3/u L Eos # (Auto) 0.1 (0.0-0.8) 10^3/u L Baso # (Auto) 0.1 (0.0-0.1) 10^3/u L Nucleated RBC % (a uto) 0 % Nucleated RBCs # 0.0 /100WBC Sodium 136 (136-145) mmol/L Potassium 4.6 (3.5-5.1) mmol/L Chloride 103 (98-107) mmol/L Carbon Dioxide 26 (22-29) mmol/L Anion Gap 11.6 (5-19) BUN 9 (8-23) mg/dL Creatinine 0.7 (0.7-1.2) mg/dL GFR Calculation 113.9 (90-130) mL/min Glucose 111 (65-115) mg/dL Calculated Osmolal ity 281 L (285-295) mOsm/k g Calcium 9.0 (8.5-10.5) mg/dL Total Bilirubin 0.2 (0.15-1.2) mg/dL AST 37 (0-40) U/L ALT 52 H (0-41) U/L Alkaline Phosphata se 67 (40-130) IU/L Troponin T Baselin e 12 (0-15) ng/L Total Protein 7.6 (6.6-8.7) g/dL Albumin 4.4 (3.5-5.2) g/dL Globulin 3.2 (1.3-4.6) g/dL Lipase 34 (13-60) U/L Imaging Data ^: CXR: Attestation: I personally reviewed and interpreted this imaging study as follows: My impression: no acute abnormality CT Abd/Pel: Attestation: I personally reviewed and interpreted this imaging study as follows: Radiologist's impression: [facility] [address] [place] [address] CT Scan Report Signed Patient: Black Rose Unit #: [id number] : 1955 Age/Sex: 65 / M ADM Date: 05/28/20 Loc: ER Room/Bed: Attending Dr: Ordering Provider/Ordering MD: Danuta Vegas MD Date of Service: 05/28/20 Procedure(s): CT abdomen pelvis w con* [id number] Accession Number(s): [id number] Report Number: [id number] PROCEDURE INFORMATION: Exam: CT Abdomen And Pelvis With Contrast Exam date and time: 05/28/2020 10:45 AM Age: 65 years old Clinical indication: Abdominal pain; Additional info: Abd pain TECHNIQUE: Imaging protocol: Computed tomography of the abdomen and pelvis with contrast. Radiation optimization: All CT scans at this facility use at least one of these dose optimization techniques: automated exposure control; mA and/or kV adjustment per patient size (includes targeted exams where dose is matched to clinical indication); or iterative reconstruction. Contrast material: OMNI 300; Contrast volume: 95 ml; Contrast route: INTRAVENOUS (IV); COMPARISON: CT abdomen pelvis w con* [id number] 09/19/2018 3:47 AM RADIATION DOSE METRICS: Total DLP (mGy-cm): 1266.52 FINDINGS: Lungs: There is bibasilar compressive atelectasis. Small bulla are present in the lower lobes. There is a tiny benign calcified granuloma in the right lower lobe. Liver: Normal. No mass. Gallbladder and bile ducts: Cholecystectomy. There is stable mild bile duct dilatation which can be normal after cholecystectomy. Pancreas: Normal. No ductal dilation. Spleen: Normal. No splenomegaly. Adrenal glands: Normal. No mass. Kidneys and ureters: There is a punctate nonobstructing calcification in the lower pole of the left kidney. Stable small benign renal cysts are present. There is renal vascular calcification in the left hilum. There is no hydronephrosis. Stomach and bowel: Unremarkable. No obstruction. No mucosal thickening. Appendix: Appendectomy. Intraperitoneal space: Unremarkable. No free air. No significant fluid collection. Vasculature: There is atherosclerotic calcification of the aortic bifurcation and iliac arteries. There is no aneurysm. Lymph nodes: Unremarkable. No enlarged lymph nodes. Urinary bladder: Unremarkable as visualized. Reproductive: Unremarkable as visualized. Bones/joints: Degenerative changes are present in the spine predominantly at L5-S1 with disc space narrowing sclerosis and osteophytes. Soft tissues: There is a small fat containing umbilical hernia. CT/CT abdomen pelvis w con* [id number] IMPRESSION: 1. No acute abnormalities are seen in the abdomen and pelvis. 2. Cholecystectomy. 3. Nonobstructing left nephrolithiasis. EKG Data ^: EKG 1: Attestation: I personally reviewed and interpreted this EKG as follows: EKG interpretation date: 05/28/20 EKG interpretation time: 10:05 Interpretation: nsr hr [address] or t wave abnormalities qrs 86 qtc 364 Discharge Plan Discharge Patient Disposition: Home Clinical Impression: Umbilical hernia Qualifiers: Obstruction and gangrene presence: without obstruction or gangrene Qualified Code(s): K42.9 - Umbilical hernia without obstruction or gangrene Chest pain Qualifiers: Chest pain type: unspecified Qualified Code(s): R07.9 - Chest pain, unspecified Condition: Stable Prescriptions: No Action pantoprazole 40 mg Tablet,Delayed Release (Dr/Ec) 40 mg PO DAILY Qty: 30 RF: 0 oxycodone 5 mg tablet 2.5 mg PO Q8H PRN (Reason: pain) Qty: 10 RF: 0 Discharge Orders: Discharge ED (Routine); Ordered 05/28/20 Ordered By: Danuta Vegas Referrals: Vasyl Patel MD [Physician] - Discharge Diet: Advance as tolerated Discharge Activity: Resume usual activity Patient Instructions: Umbilical Hernia (ED) Coding Level of Care Code ED Multi Skilled Operator for Chg Fwd Exam Comprehensive
[2020-05-28 10:26] VITALS: RESP 14
[2020-05-28] MEDS: HYDROmorphone 1 mg/mL INJ 1 mL IVP (10:26)
[2020-05-28] MEDS: LORazepam 2 mg/mL INJ 1 mL 1 MG IVP (10:29)
[2020-05-28 10:33] VITALS: PULSE 71; RESP 16; O2SAT 96
--- NOTE | 2020-05-28 10:40 | CTR_ITS ---
PROCEDURE INFORMATION: Exam: CT Abdomen And Pelvis With Contrast Exam date and time: 05/28/2020 10:45 AM Age: 65 years old Clinical indication: Abdominal pain; Additional info: Abd pain TECHNIQUE: Imaging protocol: Computed tomography of the abdomen and pelvis with contrast. Radiation optimization: All CT scans at this facility use at least one of these dose optimization techniques: automated exposure control; mA and/or kV adjustment per patient size (includes targeted exams where dose is matched to clinical indication); or iterative reconstruction. Contrast material: OMNI 300; Contrast volume: 95 ml; Contrast route: INTRAVENOUS (IV); COMPARISON: CT abdomen pelvis w con* [id number] 09/19/2018 3:47 AM RADIATION DOSE METRICS: Total DLP (mGy-cm): 1266.52 FINDINGS: Lungs: There is bibasilar compressive atelectasis. Small bulla are present in the lower lobes. There is a tiny benign calcified granuloma in the right lower lobe. Liver: Normal. No mass. Gallbladder and bile ducts: Cholecystectomy. There is stable mild bile duct dilatation which can be normal after cholecystectomy. Pancreas: Normal. No ductal dilation. Spleen: Normal. No splenomegaly. Adrenal glands: Normal. No mass. Kidneys and ureters: There is a punctate nonobstructing calcification in the lower pole of the left kidney. Stable small benign renal cysts are present. There is renal vascular calcification in the left hilum. There is no hydronephrosis. Stomach and bowel: Unremarkable. No obstruction. No mucosal thickening. Appendix: Appendectomy. Intraperitoneal space: Unremarkable. No free air. No significant fluid collection. Vasculature: There is atherosclerotic calcification of the aortic bifurcation and iliac arteries. There is no aneurysm. Lymph nodes: Unremarkable. No enlarged lymph nodes. Urinary bladder: Unremarkable as visualized. Reproductive: Unremarkable as visualized. Bones/joints: Degenerative changes are present in the spine predominantly at L5-S1 with disc space narrowing sclerosis and osteophytes. Soft tissues: There is a small fat containing umbilical hernia. CT/CT abdomen pelvis w con* [id number] IMPRESSION: 1. No acute abnormalities are seen in the abdomen and pelvis. 2. Cholecystectomy. 3. Nonobstructing left nephrolithiasis. Radiation Dose CTDIVOL = (mGy): DLP = 1266.52 (mGy-cm)
[2020-05-28 11:01] VITALS: BP 100/62; PULSE 69; RESP 14; O2SAT 96
[2020-05-28 11:01] LABS: Basophils # 0.1 10^3/uL (0.0-0.1); Basophils % 0.8 %; Eosinophils # 0.1 10^3/uL (0.0-0.8); Eosinophils % 1.6 %; Hematocrit 44.7 % (42.0-52.0); Hemoglobin 14.8 g/dL (11.7-16.6); Lymphocytes # 3.3 10^3/uL (0.8-4.8); Lymphocytes % 42.9 %; Mean Corpuscular HGB Conc 33.1 g/dL (30.0-36.0); Mean Corpuscular Hemoglobin 30.2 pg (28.0-34.0); Mean Corpuscular Volume 91.2 fL (80-94); Monocytes # 0.6 10^3/uL (0.2-0.9); Monocytes % 7.8 %; Neutrophils # 3.54 10^3/uL (1.8-7.7); Neutrophils % 46.5 %; Nucleated Red Blood Cells % 0 %; Platelet Count 167 10^3/cmm (130-400); Red Cell Distribution Width 13.4 % (12.1-15.1); White Blood Count 7.6 10^3/uL (4.0-10.0)
[2020-05-28 11:15] LABS: Alanine Aminotransferase 52 U/L (0-41); Albumin Level 4.4 g/dL (3.5-5.2); Alkaline Phosphatase 67 IU/L (40-130); Anion Gap 11.6 (5-19); Aspartate Amino Transferase 37 U/L (0-40); Blood Urea Nitrogen 9 mg/dL (8-23); Carbon Dioxide 26 mmol/L (22-29); Chloride 103 mmol/L (98-107); Creatinine Clr Calc Pharmacy 121.0287; Globulin 3.2 g/dL (1.3-4.6); Glomerular Filtration Rate 113.9 mL/min (90-130); Glucose 111 mg/dL (65-115); Lipase 34 U/L (13-60); Osmolality Calculated 281 mOsm/kg (285-295); Potassium 4.6 mmol/L (3.5-5.1); Sodium 136 mmol/L (136-145); Total Bilirubin 0.2 mg/dL (0.15-1.2); Total Protein 7.6 g/dL (6.6-8.7)
[2020-05-28 11:17] LABS: Troponin(5th) Baseline 12 ng/L (0-15)
[2020-05-28] MEDS: iohexol 300 mg/mL 100 mL Btl IV (11:29)
--- NOTE | 2020-05-28 11:55 | ECG_ITS ---
[facility] Test Date: 2020-05-28 Pat Name: Black Rose Department: Room: Gender: Male Return Agent: : 1955 Requested By: Danuta Vegas Order Number: [id number] Reading MD: Adan Frye M.D. Measurements Intervals [place] Rate: 62 P: 77 ID: [id number] QRS: 71 QRSD: 90 T: 59 QT: 375 QTc: 382 Interpretive Statements SINUS RHYTHM Compared to ECG 05/28/2020 10:05:21 No significant changes Electronically Signed On 05-28-2020 22:49:13 CDT by Adan Frye M.D. [id number]
[2020-05-28 12:40] VITALS: BP 110/55; PULSE 75; RESP 16; O2SAT 95
== END 2020-05-28 12:42 | disposition home or self-care (01) ==
PROVIDERS: Emergency Provider Emergency Medicine
DX: K42.9 Umbilical hernia without obstruction or gangrene (principal); R07.9 Chest pain, unspecified; Z86.19 Personal history of other infectious and parasitic diseases; Z86.73 Personal history of transient ischemic attack (TIA), and cerebral infarction without residual deficits; F17.210 Nicotine dependence, cigarettes, uncomplicated
CPT/HCPCS: 71045; 74177; 80053; 83690; 84484; 85025; 93005; J1170; J2060; Q9967

== ENCOUNTER 2020-08-29 08:35 | Emergency (ER) | payer MEDICARE, MEDICAID, SELFPAY ==
[2020-08-29 08:42] VITALS: BP 118/83; PULSE 84; RESP 16; TEMP 36.7; O2SAT 97; BMI 21.7
[2020-08-29 08:46] VITALS: BP 108/70; PULSE 80; RESP 20; O2SAT 96
--- NOTE | 2020-08-29 08:58 | CT_ITS ---
WS: [id number] Exam: CT facial bones wo con* [id number] Date/Time of Exam: 08/29/2020 9:07 AM Reason For Exam: pain, trauma DLP: 784.[address] scans at [facility] use at least one of these dose optimization techniques: automat ed exposure control; mA and/or kV adjustment per patient size (includes targeted exams where dose is matched to clinical indication); or iterative reconstruction. The facial bones are evaluated in the axial plane with sagittal and coronal reformatted images. There is fracture deformity of the nasal bone age indeterminate. No other obvious facial fracture is noted. Normal orbits and optic globes. Minimal mucosal thickening in the ethmoid sinuses. Remaining p aranasal sinuses are clear. The mandible is intact. DJD of the right TMJ. The mastoids are clear. CT/CT facial bones wo con* [id number] IMPRESSION: 1. Fracture deformity of the nasal bone. Age is indeterminate. This may be a re cent fracture. 2. No other sign of facial fracture.
--- NOTE | 2020-08-29 08:58 | XR_ITS ---
WS: [id number] Exam: XR sacrum coccyx min 2V [id number] Date/Time of Exam: 08/29/2020 9:04 AM Reason For Exam: trauma No sacrococcygeal fracture noted. DJD of the SI joints. XR/XR sacrum coccyx min 2V [id number] IMPRESSION: 1. No sign of sacrococcygeal fracture.
--- NOTE | 2020-08-29 08:58 | XR_ITS ---
WS: [id number] Exam: XR cervical spine 3V* [id number] Date/Time of Exam: 08/29/2020 9:04 AM Reason For Exam: trauma No acute fracture or dislocation. Mild spondylosis at C4-5. Mild facet DJD at all levels. The odontoi d is intact. Paraspinal soft tissues appear normal. XR/XR cervical spine 3V* [id number] IMPRESSION: 1. No fracture or malalignment. Minimal degenerative changes.
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
--- NOTE | 2020-08-29 09:08 | PC.NURSE ---
6mg toradol order was typo, order was meant to be 60mg. 6mg order not given.
[2020-08-29] MEDS: ketorolac 30 mg/mL INJ 60 MG IM (10:02)
[2020-08-29 10:20] VITALS: BP 100/62; PULSE 76; RESP 18; TEMP 36.4; O2SAT 94
== END 2020-08-29 10:50 | disposition home or self-care (01) ==
PROVIDERS: Emergency Provider Family Medicine
DX: S30.0XXA Contusion of lower back and pelvis, initial encounter (principal); S02.2XXA Fracture of nasal bones, initial encounter for closed fracture; S09.8XXA Other specified injuries of head, initial encounter; Z86.19 Personal history of other infectious and parasitic diseases; Z86.73 Personal history of transient ischemic attack (TIA), and cerebral infarction without residual deficits; F17.210 Nicotine dependence, cigarettes, uncomplicated; W55.22XA Struck by cow, initial encounter
CPT/HCPCS: 70450; 70486; 72040; 72220; 96372; 99283; J1885

== ENCOUNTER 2021-05-27 03:04 | Emergency (ER) | payer MEDICARE, MEDICAID, SELFPAY ==
[2021-05-27 03:20] VITALS: BP 133/55; PULSE 97; RESP 16; TEMP 36.6; O2SAT 96; BMI 24.4
--- NOTE | 2021-05-27 03:45 | XRR_ITS ---
PROCEDURE INFORMATION: Exam: XR Left Shoulder Exam date and time: 05/27/2021 3:45 AM Age: 66 years old Clinical indication: Pain; Shoulder; Left; Additional info: L shoulder pain TECHNIQUE: Imaging protocol: XR Left shoulder. Views: 2 or more views. COMPARISON: CR (CHEST, ) 05/28/2020 10:19 AM FINDINGS: Bones/joints: Severe glenohumeral osteoarthritis. There are calcifications of the rotator cuff tendons. No acute fracture or dislocation. Soft tissues: Normal. XR/XR shoulder LT min 2V* [id number] IMPRESSION: 1. No acute fracture or dislocation. 2. Severe glenohumeral osteoarthritis. 3. Calcific tendinitis of the rotator cuff.
[2021-05-27] MEDS: HYDROmorphone 1 mg/mL INJ 1 mL IVP (04:05)
[2021-05-27] MEDS: ondansetron 4 MG Tablet PO (04:05)
--- NOTE | 2021-05-27 04:24 | W.ED.EXTPRO ---
HPI - Extremity Problem General: Chief complaint: Extremity Injury, Upper Stated complaint: left shoulder pain Time Seen by Provider: 05/27/21 03:06 Source: patient History of Present Illness: 66-year-old gentleman with a history of a bad rotator cuff . He notes that he struck it back O door 2 days ago with his left shoulder, and has had increased pain since. Tonight he could not take the pain anymore at home, so decided to come to the ER. No fever, no recent illness. MD Complaint: joint pain Onset (ago): day(s) Pain Consistency: constant Location: left and upper extremity Quality: stabbing and aching Radiation: none Relieving factors: nothing Exacerbating factors: range of motion Associated symptoms: Deny chest pain, fever(s), myalgias, rash or short of breath Review of Systems Const: Denies: fever(s) Card: Denies: chest pain Skin/Breast: Denies: rash PFSH ED PFSH: Medical History Hepatitis C Stroke due to intracerebral hemorrhage Social History Smoking and tobacco status: current every day smoker cigarettes Packs smoked per day: 1 Years cigarettes smoked: 35 Second hand smoke exposure: No Alcohol intake: never Lives independently: Yes Marital status: History of recent travel: No Current gender identity: Male Physical Exam Const: COMMON NORMALS: patient oriented x3 GENERAL APPEARANCE: cooperative; not comfortable and not ill appearing HENMT: COMMON NORMALS: normocephalic, atraumatic and Normal external nose present HEAD & SCALP: normocephalic and atraumatic FACE & SINUS: normal facial exam NOSE: Normal external nose present Eye: COMMON NORMALS: Equal, round and reactive pupils present and EOMs intact bilaterally PUPIL: Yes Equal, round and reactive pupils present Chest: COMMONS NORMALS: normal inspection of the chest Resp: COMMON NORMALS: normal respiratory effort and No use of accessory muscles Cardio: COMMON NORMALS: regular rate and regular rhythm RATE: regular rate RHYTHM: regular rhythm Extremity: NARRATIVE EXTREMITY EXAM: Exam the left shoulder reveals pain with range of motion. There is tenderness over the rotator cuff footprint proximal humeral head. There is mild acromial tenderness. No deformity. Pulses and sensation are intact. Neuro: COMMON NORMALS: patient oriented x3 Course Vital Signs: Vital signs: Vital Signs Temperature 97.8 F 05/27/21 03:20 Pulse Rate 97 05/27/21 03:20 Respiratory Rate 19 H 05/27/21 04:49 Blood Pressure 133/55 05/27/21 03:20 Pulse Oximetry 99 05/27/21 04:49 MDM - Extremity (Nontraumatic) Medical Decision Making X-ray of the left shoulder reveals moderately severe glenohumeral joint arthritic changes with inferior spurring. There is evidence of calcific rotator cuff tendinitis. He is given injection of pain medication here which helped. He will be allowed home with 2 Percocet. Tapering dose of steroid will be prescribed. Orthopedic follow-up. Lab Data Radiology Impressions Shoulder X-Ray 05/27/21 03:45 IMPRESSION: 1. No acute fracture or dislocation. 2. Severe glenohumeral osteoarthritis. 3. Calcific tendinitis of the rotator cuff. Discharge Plan Discharge Patient Disposition: Home Clinical Impression: Contusion of left shoulder, Localized osteoarthritis of left shoulder Condition: Stable Prescriptions: New Medrol (Cuong) 4 mg tablets,dose pack See Rx Instructions .ROUTE .COMPLEX Qty: 21 0RF Rx Instructions: orally per package directions Continued hydrocodone-acetaminophen 5-325 mg tablet 1 tab PO Q6H PRN (Reason: pain) Qty: 7 0RF Discharge Orders: Discharge ED (Routine); Ordered 05/27/21 Ordered By: Giancarlo Felix Patient Instructions: Osteoarthritis (ED), Opioid Safety Activity Restrictions/Additional Instructions: Return for fever, worsening pain despite treatment, numbness to the arm, shortness of breath, chest discomfort, any other concerning symptoms. Coding Level of Care Code ED Hammer Runner for Adamg Fwd Exam Detailed
[2021-05-27 04:49] VITALS: RESP 19; O2SAT 99
[2021-05-27] MEDS: oxyCODONE-APAP 5-325 mg Tablet 2 TAB PO (04:49)
--- NOTE | 2021-05-28 09:55 | DCPLANNER ---
Addendum entered by Charlene Frias 06/14/21 09:09: Patient had a follow up appointment scheduled for 06.12.[address] Corral at ortho - patient did attend appointment. Addendum entered by Charlene Frias 06/04/21 09:15: Patient has a follow up appointment scheduled for Saturday, June 12, 2021 at 10:[address] Corral at ortho. Clinic will call patient with appointment information. Original Note: accounting systems manager had message to schedule a follow up appointment for patient with ortho. accounting systems manager called the ortho clinic, spoke with Gabriella, gave clinic patients information. accounting systems manager was told that patients information would be printed and reviewed. Clinic will call patient with appointment information.
== END 2021-05-27 04:52 | disposition home or self-care (01) ==
PROVIDERS: Emergency Provider Emergency Medicine
DX: S40.012A Contusion of left shoulder, initial encounter (principal); M19.012 Primary osteoarthritis, left shoulder; Z86.19 Personal history of other infectious and parasitic diseases; Z86.73 Personal history of transient ischemic attack (TIA), and cerebral infarction without residual deficits; F17.210 Nicotine dependence, cigarettes, uncomplicated; W22.8XXA Striking against or struck by other objects, initial encounter
CPT/HCPCS: 73030; 96374; 99283; J1170; Q0162

== ENCOUNTER 2021-11-28 07:13 | Emergency (ER) | payer MEDICARE, MEDICAID, SELFPAY ==
[2021-11-28 07:18] VITALS: BP 124/75; PULSE 79; RESP 18; TEMP 36.8; O2SAT 97; BMI 21.8
--- NOTE | 2021-11-28 07:29 | XR_ITS ---
WS: [id number] XR knee RT 1-2V 44116 REASON FOR EXAM: pain FINDINGS: No fracture or focal bone lesion. The medial and lateral joint spaces of the right knee are intact and relatively well-preserved. Mild subchondral sclerosis in the medial and lateral knee joint compartment. Mild subchondral sclerosis and small osteophytosis of the patella with mild narrowing of the patellof emoral joint. The right knee is unchanged compared to 11/11/2019. XR/XR knee RT 1-2V 48953 IMPRESSION: No acute abnormality. Mild changes of osteoarthritis stable compared to the previous examination.
--- NOTE | 2021-11-28 07:56 | W.ED.GENADLT ---
HPI - General Adult General: Chief complaint: General Medical Stated complaint: Right knee pain Time Seen by Provider: 11/28/21 07:36 Source: patient Mode of arrival: ambulatory Limitations: no limitations History of Present Illness: 66-year-old male presents emergency room with complaints of right knee pain that began recently. Patient is very active. 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 Worsened suddenly when he got out of an excavator today no specific trauma that he can recall no previous surgeries to that knee. He has a secondary complaint patient mention weight loss over the last month. Onset (ago): minute(s) Location: right (Knee) Radiation: non-radiation Severity: moderate Quality: aching Pain Consistency: constant Relieving factors: none, immobilization and rest Exacerbating factors: movement and other (Walking weightbearing) Associated symptoms: Deny chest pain, confusion, cough, diaphoresis, decreased appetite, dyspnea, fevers/chills, headache(s), malaise, nausea, rash, palpitations, seizures, short of breath, syncope, vomiting or weakness Treatments prior to arrival: none Review of Systems Const: Denies: fever(s), chills, fatigue, malaise or diaphoresis Card: Denies: chest pain, palpitations or syncope Resp: Denies: dyspnea GI: Denies: nausea or vomiting Musc: Reports: joint pain; Denies: extremity pain, extremity swelling or joint swelling Skin/Breast: Denies: rash Neuro: Denies: headache(s) or confusion PFS ED PFSH: Medical History Hepatitis C Stroke due to intracerebral hemorrhage Social History Smoking and tobacco status: current every day smoker cigarettes Packs smoked per day: 1 Years cigarettes smoked: 35 Second hand smoke exposure: No Alcohol intake: never Lives independently: Yes Marital status: History of recent travel: No Current gender identity: Male Physical Exam Const: COMMON NORMALS: no acute distress GENERAL APPEARANCE: cooperative and comfortable ORIENTATION/CONSCIOUSNESS: Yes awake, Yes oriented to person, Yes oriented to place and Yes oriented to time HENMT: COMMON NORMALS: normocephalic, atraumatic and hearing grossly normal bilaterally HEAD & SCALP: normocephalic and atraumatic Resp: COMMON NORMALS: normal respiratory effort, No retractions, No use of accessory muscles and clear to auscultation bilaterally AUSCULTATION: clear to auscultation bilaterally Cardio: COMMON NORMALS: regular rate, regular rhythm and No murmurs present (Cardio) RATE: regular rate RHYTHM: regular rhythm Extremity: COMMON NORMALS: normal to inspection, capillary refill normal, no clubbing, cyanosis or edema, no calf tenderness and no pedal edema OTHER: No calf pain no swelling or tenderness there is a fullness in the popliteal fossa that is mildly tender. Neurovascularly intact. Drawer and Dusty's test are negative no deformities or varus or valgus formant stresses there is no joint effusion. Neuro: SENSORIUM/ORIENTATION: Yes oriented to person, Yes oriented to place and Yes oriented to time Skin: COMMON NORMALS: no rashes or lesions noted GENERAL SKIN EXAM: no rashes or lesions noted Course Vital Signs: Vital signs: Vital Signs Temperature 98.2 F 11/28/21 07:18 Pulse Rate 79 11/28/21 07:18 Respiratory Rate 18 11/28/21 07:18 Blood Pressure 124/75 11/28/21 07:18 Pulse Oximetry 97 11/28/21 07:18 Oxygen Delivery Me thod 11/28/21 07:18 [facility] - General Adult Medical Decision Making Based on exam suspect he has a Sims's cyst that has been aggravated. Start him on an anti-inflammatory. He has no signs of DVT at this time. Refer him to Ortho if persists. Medical Records I reviewed the patient's medical records. Lab Data I reviewed the patient's lab results. Discharge Plan Discharge Patient Disposition: Home Clinical Impression: Acute pain of right knee, Sims's cyst of knee Condition: Stable Prescriptions: New diclofenac sodium 75 mg tablet,delayed release (DR/EC) 75 mg PO Q12H PRN (Reason: pain) Qty: 20 0RF Discontinued naproxen [Naprosyn] 500 mg tablet 500 mg PO BID Qty: 60 0RF No Action hydrocodone-acetaminophen 5-325 mg tablet 1 tab PO Q6H PRN (Reason: pain) 7 Days Qty: 20 0RF Medrol (Cuong) 4 mg tablets,dose pack See Rx Instructions .ROUTE .COMPLEX Qty: 21 0RF Rx Instructions: orally per package directions Discharge Orders: Discharge ED (Routine); Ordered 11/28/21 Ordered By: Weston Serrano Discharge Diet: Usual diet Discharge Activity: Increase activity as tolerated Patient Instructions: Opioid Safety, Pain Management Activity Restrictions/Additional Instructions: Increase activity as tolerated. manager chemistry will make arrangements for her to follow-up with orthopedics. Coding Level of Care Code ED Flaker Operator for [place]
--- NOTE | 2021-11-28 11:32 | DCPLANNER ---
Addendum entered by Charlene Frias 12/04/21 08:25: information technology account manager received the following message from the front staff at ortho regarding follow up appointment: Left vm/mailed letter for pt to call and schedule with [facility] Osman under Dr. Corral for the bakers cyst on the right knee information technology account manager called patient, he stated that he was fine and did not need the appointment at this time. Original Note: information technology account manager had message to schedule a follow up appointment for patient with ortho. information technology account manager sent patients information to the front office staff at ortho. Patients information will be printed and reviewed. Clinic will call patient with appointment information.
== END 2021-11-28 07:58 | disposition home or self-care (01) ==
PROVIDERS: Emergency Provider Family Medicine
DX: M71.21 Synovial cyst of popliteal space [Baker], right knee (principal); F17.210 Nicotine dependence, cigarettes, uncomplicated
CPT/HCPCS: 73560; 99283

== ENCOUNTER 2022-04-20 11:54 | Emergency (ER) | payer MEDICARE, MEDICAID, SELFPAY ==
[2022-04-20 12:31] VITALS: BP 134/84; PULSE 84; RESP 19; TEMP 37.2; O2SAT 96; BMI 21.9
--- NOTE | 2022-04-20 12:44 | ECG_ITS ---
[facility] Test Date: 2022-04-20 Pat Name: Black Rose Department: Room: Gender: Male Envelope Folding Machine Operator: : 1955 Requested By: Scooter Goldberg Order Number: [id number] Linda MD: Zamzam Ray M.D. Measurements Intervals [place] Rate: 77 P: 73 [place]: 171 QRS: 73 QRSD: 91 T: 52 QT: 366 QTc: 415 Interpretive Statements SINUS RHYTHM Compared to ECG 05/28/2020 12:00:12 No significant changes Electronically Signed On 04-20-2022 18:23:19 WOOLEN SUITING SHRINKER by Zamzam Ray M.D. [id number]
--- NOTE | 2022-04-20 12:50 | CTR_ITS ---
PROCEDURE INFORMATION: Exam: CT Abdomen And Pelvis With Contrast Exam date and time: 04/20/2022 2:13 PM Age: 66 years old Clinical indication: Abdominal pain; Generalized; Additional info: Left side abdominal pain, constipation TECHNIQUE: Imaging protocol: Computed tomography of the abdomen and pelvis with contrast. Radiation optimization: All CT scans at this facility use at least one of these dose optimization techniques: automated exposure control; mA and/or kV adjustment per patient size (includes targeted exams where dose is matched to clinical indication); or iterative reconstruction. Contrast material: OMNI 350; Contrast volume: 100 ml; Contrast route: INTRAVENOUS (IV); Other protocol: This patient has received 0 known CTs and 0 known cardiac nuclear medicine studies in the 12 months prior to the current study. COMPARISON: CT abdomen pelvis w con* [id number] 05/28/2020 11:42 AM RADIATION DOSE METRICS: Total DLP (mGy-cm): 447.63 FINDINGS: Lungs: Emphysematous changes. Right lower lobe atelectasis versus infiltrate. Liver: Normal. No mass. Gallbladder and bile ducts: Cholecystectomy. Mild intrahepatic biliary dilation. Pancreas: Normal. No ductal dilation. Spleen: Normal. No splenomegaly. Adrenal glands: Normal. No mass. Kidneys and ureters: Bilateral renal cysts, negative for follow-up advised. Left kidney punctate nonobstructing calyceal stone. Stomach and bowel: Prominent fluid in the small bowel without dilation may reflect an enteritis. Appendix: No evidence of appendicitis. Intraperitoneal space: Unremarkable. No free air. No significant fluid collection. Vasculature: Unremarkable. No abdominal aortic aneurysm. Lymph nodes: Scattered prominent subcentimeter short axis periaortic lymph nodes, nonspecific. Urinary bladder: Unremarkable as visualized. Reproductive: Unremarkable as visualized. Bones/joints: Unremarkable. No acute fracture. Soft tissues: Unremarkable. CT/CT abdomen pelvis w con* [id number] IMPRESSION: 1. Prominent fluid in the small bowel without dilation may reflect an enteritis. 2. Emphysematous changes. 3. Right lower lobe atelectasis versus infiltrate. 4. Cholecystectomy. 5. Mild intrahepatic biliary dilation. 6. Bilateral renal cysts, negative for follow-up advised. 7. Left kidney punctate nonobstructing calyceal stone. 8. Scattered prominent subcentimeter short axis periaortic lymph nodes, nonspecific. COMMENTS: Consistent with the [employer]'s Incidental Findings Committee white paper (J Am Martín Radiol 2018): Any incidental renal lesion less than 1 cm or classified as too small to characterize, or any incidental cystic renal lesion characterized as simple-appearing, is likely benign. No follow-up imaging is recommended for these lesions per consensus recommendations based on imaging criteria.
--- NOTE | 2022-04-20 12:52 | W.ED.ABDPA2 ---
HPI - Abdominal Pain General: Chief Complaint: Abdominal Pain Stated Complaint: left side is burning and in pain and headaches. Time Seen by Provider: 04/20/22 12:40 History of Present Illness: Patient is a 66-year-old male comes to the ED with abdominal pain. Patient has a past medical history of hepatitis C and COPD. Symptoms started approximately week and a half ago. Pain is located in the left side of the abdomen. He rates the pain currently an 8 out of 10. He reports constipation and says he has not had a bowel movement in almost a week. Patient is also complaining of having some epigastric burning type pain that is been going on for over a week as well. He has had decreased appetite over the past couple days. He endorses some nausea but denies any episodes of emesis. Patient says he is a patient at the pain clinic and gets hydrocodone's that he takes daily. He says he stopped taking the hydrocodone's about 4 days ago due to his symptoms. Denies any fevers. Associated Symptoms: Reports nausea; Denies chills, constipation, diarrhea, dysuria, fever(s), hematochezia, hematuria and vomiting Review of Systems Const: Reports: change in appetite (Decreased appetite couple days ago.); Denies: fever(s), chills or fatigue Eyes: Denies: change in vision or eye discomfort ENMT: Denies: throat pain, odynophagia, nasal discharge or nasal congestion Card: Denies: chest pain, palpitations, edema, swelling of feet/ankles, dyspnea on exertion or orthopnea Resp: Denies: dyspnea, productive cough or non-productive cough GI: Reports: abdominal pain and nausea; Denies: vomiting, diarrhea, constipation or hematochezia : Denies: flank pain, difficulty urinating, dysuria or hematuria Musc: Denies: neck pain, back pain or extremity swelling Skin/Breast: Denies: rash or new lesions Neuro: Denies: headache(s), numbness in extremities or weakness in extremities [facility] ED PFSH: Medical History (Updated 04/22/22 @ 06:45 by JULISSA Villar) COPD (chronic obstructive pulmonary disease) Hepatitis C Stroke due to intracerebral hemorrhage Surgical History (Updated 04/22/22 @ 06:45 by JULISSA Villar) No pertinent past surgical history Social History Smoking and tobacco status: current every day smoker cigarettes Packs smoked per day: 1 Years cigarettes smoked: 35 Second hand smoke exposure: No Alcohol intake: never Lives independently: Yes Marital status: History of recent travel: No Current gender identity: Male Physical Exam Const: COMMON NORMALS: patient oriented x3 and alert GENERAL APPEARANCE: cooperative HENMT: COMMON NORMALS: normocephalic HEAD & SCALP: normocephalic MOUTH: Normal oral and palatal mucosa present THROAT: posterior oropharynx normal and uvula midline Neck/C-Spine: COMMON NORMALS: supple GENERAL: Yes normal visual inspection Resp: COMMON NORMALS: normal respiratory effort, No retractions, No use of accessory muscles and clear to auscultation bilaterally AUSCULTATION: clear to auscultation bilaterally Cardio: COMMON NORMALS: regular rate, regular rhythm, S1 normal heart sound present, S2 normal heart sound present, No gallops present (Cardio), No clicks present (Cardio), No murmurs present (Cardio) and Peripheral pulses 2+ throughout RATE: regular rate RHYTHM: regular rhythm HEART SOUNDS: S1 normal heart sound present and S2 normal heart sound present PERIPHERAL PULSES: Peripheral pulses 2+ throughout GI: COMMON NORMALS: Normal to inspection, nondistended, normoactive bowel sounds present, Soft to palpation and no masses PALPATION: Yes Soft to palpation and Yes Tenderness to palpation present (GI) Details: LLQ, LUQ and other (Epigastric pain) : COMMON NORMALS: Yes no CVA tenderness BLADDER/KIDNEY EXAM: Yes no CVA tenderness Back/Pelvis: COMMON NORMALS: no CVA tenderness Extremity: COMMON NORMALS: normal to inspection Neuro: COMMON NORMALS: patient oriented x3 SENSORIUM/ORIENTATION: Yes alert GAIT: Yes Normal gait present Skin: GENERAL SKIN EXAM: dry skin Course Vital Signs: Vital signs: Vital Signs Temperature 98.9 F 04/20/22 12:31 Pulse Rate 72 04/20/22 15:55 Respiratory Rate 18 04/20/22 15:55 Blood Pressure 111/72 04/20/22 15:55 Pulse Oximetry 94 04/20/22 15:55 Oxygen Delivery Me thod 04/20/22 12:31 MDM - Abdominal Pain Medical Decision Making Patient is a 66-year-old male comes to the ED with abdominal pain. Patient has a past medical history of hepatitis C and COPD. Symptoms started approximately week and a half ago. Pain is located in the left side of the abdomen. He rates the pain currently an 8 out of 10. He reports constipation and says he has not had a bowel movement in almost a week. Patient is also complaining of having some epigastric burning type pain that is been going on for over a week as well. He has had decreased appetite over the past couple days. He endorses some nausea but denies any episodes of emesis. Patient says he is a patient at the pain clinic and gets hydrocodone's that he takes daily. He says he stopped taking the hydrocodone's about 4 days ago due to his symptoms. Denies any fevers. Vitals are stable. He has some abdominal tenderness in the epigastric region and in the left side of the abdomen. Rest of exam is benign. Labs are unremarkable. CT of abdomen pelvis shows prominent fluid in the small bowel without dilation which may reflect enteritis and the rest of CT was unremarkable. Patient diagnosed with gastritis and constipation. Use discharged home with prescription for Carafate, Protonix, Zofran, MiraLAX and a stool softener. Follow-up with PCP in the next week for reevaluation. Return ED precautions given. Patient understood and agreed with plan. Lab Data I reviewed the patient's lab results. 04/20/22 12:52 04/20/22 12:52 Labs/Radiology: Radiology Impressions Abdomen/Pelvis CT 04/20/22 12:50 IMPRESSION: 1. Prominent fluid in the small bowel without dilation may reflect an enteritis. 2. Emphysematous changes. 3. Right lower lobe atelectasis versus infiltrate. 4. Cholecystectomy. 5. Mild intrahepatic biliary dilation. 6. Bilateral renal cysts, negative for follow-up advised. 7. Left kidney punctate nonobstructing calyceal stone. 8. Scattered prominent subcentimeter short axis periaortic lymph nodes, nonspecific. COMMENTS: Consistent with the [employer]'s Incidental Findings Committee white paper (J Am Martín Radiol 2018): Any incidental renal lesion less than 1 cm or classified as too small to characterize, or any incidental cystic renal lesion characterized as simple-appearing, is likely benign. No follow-up imaging is recommended for these lesions per consensus recommendations based on imaging criteria. Laboratory Results WBC 7.5 10^3/uL (4.0-10.0) 04/20/22 12:52 RBC 4.97 10^6/uL (4.1-5.3) 04/20/22 12:52 Hgb 14.9 g/dL (11.7-16.6) 04/20/22 12:52 Hct 44.5 % (42.0-52.0) 04/20/22 12:52 MCV 89.5 fl (80-94) 04/20/22 12:52 MCH 30.0 pg (28.0-34.0) 04/20/22 12:52 MCHC 33.5 g/dL (30.0-36.0) 04/20/22 12:52 RDW 13.3 % (12.1-15.1) 04/20/22 12:52 Plt Count 159 10^3/cmm (130-400) 04/20/22 12:52 MPV 11.0 fL (7.4-10.4) H 04/20/22 12:52 Neut % (Auto) 47.2 % 04/20/22 12:52 Lymph % (Auto) 41.4 % 04/20/22 12:52 Charlton % (Auto) 10.1 % 04/20/22 12:52 Eos % (Auto) 0.5 % 04/20/22 12:52 Baso % (Auto) 0.5 % 04/20/22 12:52 Neut # (Auto) 3.54 10^3/uL (1.8-7.7) 04/20/22 12:52 Lymph # (Auto) 3.1 10^3/uL (0.8-4.8) 04/20/22 12:52 Charlton # (Auto) 0.8 10^3/uL (0.2-0.9) 04/20/22 12:52 Eos # (Auto) 0.0 10^3/uL (0.0-0.8) 04/20/22 12:52 Baso # (Auto) 0.0 10^3/uL (0.0-0.1) 04/20/22 12:52 Nucleated RBC % (auto) 0 % 04/20/22 12:52 Nucleated RBCs # 0.0 /100WBC 04/20/22 12:52 Sodium 136 mmol/L (136-145) 02/04/23 12:52 Potassium 3.9 mmol/L (3.5-5.1) 04/20/22 12:52 Chloride 99 mmol/L (98-107) 04/20/22 12:52 Carbon Dioxide 24 mmol/L (22-29) 04/20/22 12:52 Anion Gap 16.9 (5-19) 04/20/22 12:52 BUN 11 mg/dL (8-23) 04/20/22 12:52 Creatinine 0.6 mg/dL (0.7-1.2) L 04/20/22 12:52 GFR Calculation 135.6 mL/min (90-130) H 04/20/22 12:52 Glucose 98 mg/dL (65-115) 04/20/22 12:52 Calculated Osmolality 281 mOsm/kg (285-295) L 04/20/22 12:52 Calcium 9.4 mg/dL (8.5-10.5) 04/20/22 12:52 Total Bilirubin 0.6 mg/dL (0.15-1.2) 04/20/22 12:52 AST 30 U/L (0-40) 04/20/22 12:52 ALT 37 U/L (0-41) 04/20/22 12:52 Alkaline Phosphatase 56 U/L (40-130) 04/20/22 12:52 Troponin T Baseline 10 ng/L (0-15) 04/20/22 12:52 Troponin T 120 Minute 11.24 ng/L (0-15) 04/20/22 14:49 Delta Troponin T 1.24 ABS# (0-10) 04/20/22 14:49 NT-Pro-B Natriuret Pep 36 pg/mL (0-125) 04/20/22 12:52 Total Protein 7.6 g/dL (6.6-8.7) 04/20/22 12:52 Albumin 4.5 g/dL (3.5-5.2) 04/20/22 12:52 Globulin 3.1 g/dL (1.3-4.6) 04/20/22 12:52 Lipase 32 U/L (13-60) 04/20/22 12:52 Urine Color Straw (Yellow) 04/20/22 14:58 Urine Appearance Clear (CLEAR) 04/20/22 14:58 Urine pH 7 (5-7) 04/20/22 14:58 Ur Specific [place] 1.010 (1.005-1.030) 04/20/22 14:58 Urine Protein Neg (Negative) 04/20/22 14:58 Urine Glucose (UA) Norm (Normal) 04/20/22 14:58 Urine Ketones 1+ (Negative) H 04/20/22 14:58 Urine Blood Neg (Negative) 04/20/22 14:58 Urine Nitrate Negative (Negative) 04/20/22 14:58 Urine Bilirubin Neg (Negative) 04/20/22 14:58 Urine Urobilinogen Norm mg/dL (Negative) 04/20/22 14:58 Ur Leukocyte Esterase Negative (Negative) 04/20/22 14:58 Discharge Plan Discharge Patient Disposition: Home Clinical Impression: Gastritis Qualifiers: Gastritis type: unspecified gastritis Chronicity: unspecified Gastritis bleeding: presence of bleeding unspecified Qualified Code(s): K29.70 - Gastritis, unspecified, without bleeding Constipation Qualifiers: Constipation type: slow transit constipation Qualified Code(s): K59.01 - Slow transit constipation Condition: Stable Prescriptions: New pantoprazole 40 mg tablet,delayed release (DR/EC) 40 mg PO DAILY 28 Days Qty: 30 0RF ondansetron 4 mg tablet,disintegrating 4 mg PO Q8H PRN (Reason: nausea and vomiting) Qty: 15 0RF Carafate 1 gram tablet 1 g PO Q6H 14 Days Qty: 56 0RF Miralax 17 gram/dose powder 17 g PO DAILY 3 Days Qty: 119 0RF Stool Softener (docusate elana) 240 mg capsule 240 mg PO BID PRN (Reason: constipation) Qty: 20 0RF No Action hydrocodone-acetaminophen 5-325 mg tablet 1 tab PO Q6H PRN (Reason: pain) 7 Days Qty: 20 0RF diclofenac sodium 75 mg tablet,delayed release (DR/EC) 75 mg PO Q12H PRN (Reason: pain) Qty: 20 0RF Discharge Orders: Discharge ED (Routine); Ordered 04/20/22 Ordered By: Scooter Goldberg Discharge Diet: Regular Discharge Activity: Increase activity as tolerated Patient Instructions: Gastritis (ED), Constipation (DC) Activity Restrictions/Additional Instructions: Follow-up with medical provider as directed in the next 5 to 7 days for reevaluation. Sending you home with a prescription for pantoprazole which is a PPI that helps with acid reflux if you are already taking this medication you can wait to fill prescription until you run out. Take medications as prescribed. Return to the ER or your medical provider if condition worsens. Please read and understand discharge instructions. Thank you for choosing [facility] for your healthcare needs today. Please realize this is an emergency room and that we are providing you with a medical screening exam and this may not be complete and all inclusive of all the testing and or work up that you may need to determine your ailment or severity of your illness. It is very important that you follow up as instructed or that you return to the Emergency Department should you have concerns or if your condition changes or worsens in any way. Coding Level of Care Code ED Licensed Esthetician for [place] [facility] Exam Comprehensive
[2022-04-20] MEDS: ondansetron 2 mg/ML SDV 2 mL 4 MG IVP (13:10)
[2022-04-20] MEDS: morphine 4 mg/mL SDV 1 mL IVP ×2 (13:10→15:04)
[2022-04-20 13:20] LABS: Basophils % 0.5 %; Eosinophils % 0.5 %; Hematocrit 44.5 % (42.0-52.0); Hemoglobin 14.9 g/dL (11.7-16.6); Lymphocytes # 3.1 10^3/uL (0.8-4.8); Lymphocytes % 41.4 %; Mean Corpuscular HGB Conc 33.5 g/dL (30.0-36.0); Mean Corpuscular Volume 89.5 fl (80-94); Monocytes # 0.8 10^3/uL (0.2-0.9); Monocytes % 10.1 %; Neutrophils # 3.54 10^3/uL (1.8-7.7); Neutrophils % 47.2 %; Nucleated Red Blood Cells % 0 %; Platelet Count 159 10^3/cmm (130-400); Red Blood Count 4.97 10^6/uL (4.1-5.3); Red Cell Distribution Width 13.3 % (12.1-15.1); White Blood Count 7.5 10^3/uL (4.0-10.0)
[2022-04-20 13:41] LABS: Troponin(5th) Baseline 10 ng/L (0-15)
[2022-04-20 13:51] LABS: Alanine Aminotransferase 37 U/L (0-41); Albumin Level 4.5 g/dL (3.5-5.2); Alkaline Phosphatase 56 U/L (40-130); Aspartate Amino Transferase 30 U/L (0-40); Blood Urea Nitrogen 11 mg/dL (8-23); Calcium 9.4 mg/dL (8.5-10.5); Carbon Dioxide 24 mmol/L (22-29); Chloride 99 mmol/L (98-107); Creatinine Clr Calc Pharmacy 133.6207; Globulin 3.1 g/dL (1.3-4.6); Glomerular Filtration Rate 135.6 mL/min (90-130); Glucose 98 mg/dL (65-115); Lipase 32 U/L (13-60); NT Pro B Type Natriuretic Pept 36 pg/mL (0-125); Osmolality Calculated 281 mOsm/kg (285-295); Sodium 136 mmol/L (136-145); Total Bilirubin 0.6 mg/dL (0.15-1.2); Total Protein 7.6 g/dL (6.6-8.7)
[2022-04-20 14:08] LABS: Anion Gap 16.9 (5-19); Potassium 3.9 mmol/L (3.5-5.1)
[2022-04-20] MEDS: iohexol 350 mg/mL 500 mL Btl (per mL) IV (14:15)
--- NOTE | 2022-04-20 14:54 | ECG_ITS ---
[facility] Test Date: 2022-04-20 Pat Name: Black Rose Department: Room: Gender: Male Repossession Agent: : [id number] Requested By: Scooter Goldberg Order Number: [id number] Mckeon MD: Zamzam Ray M.D. Measurements Intervals [place] Rate: 68 P: 75 OK: 160 QRS: 73 QRSD: 101 T: 52 QT: 389 QTc: 416 Interpretive Statements SINUS RHYTHM Compared to ECG 04/20/2022 12:53:51 No significant changes Electronically Signed On 04-20-2022 18:29:47 CHEMISTRY TEACHER by Zamzam Ray M.D. [id number]
[2022-04-20 15:19] LABS: Add Urine Microscopic? NO; Charge for UA Resulting for Rev
[2022-04-20] MEDS: lidocaine 2% viscous 15 ML, aluminum-mag hydrox-simethicon 30 ML, sucralfate oral liq 1 GM PO (15:20)
[2022-04-20 15:22] LABS: Troponin 5 2HR 11.24 ng/L (0-15)
[2022-04-20 15:44] LABS: Troponin 5 2HR Delta 1.24 ABS# (0-10)
[2022-04-20 15:48] LABS: Bilirubin Urine Neg (Negative); Blood Urine Neg (Negative); Glucose Urine UA Norm (Normal); Ketones Urine 1+ (Negative); Leukocyte Esterase Urine Negative (Negative); Nitrate Urine Negative (Negative); Protein Urine Neg (Negative); Urine Appearance Clear (CLEAR); Urine Color Straw (Yellow); Urobilinogen Urine Norm (Negative); pH Urine 7 (5-7)
[2022-04-20 15:55] VITALS: BP 111/72; PULSE 72; RESP 18; O2SAT 94
== END 2022-04-20 15:57 | disposition home or self-care (01) ==
PROVIDERS: Emergency Provider Physician Assistant
DX: K29.70 Gastritis, unspecified, without bleeding (principal); K59.01 Slow transit constipation; J44.9 Chronic obstructive pulmonary disease, unspecified; Z86.19 Personal history of other infectious and parasitic diseases; Z86.73 Personal history of transient ischemic attack (TIA), and cerebral infarction without residual deficits; F17.210 Nicotine dependence, cigarettes, uncomplicated
CPT/HCPCS: 36415; 74177; 80053; 81003; 83690; 83880; 84484; 85025; 93005; 96374; 96375; 96376; 99285; J2270; J2405; Q9967

== ENCOUNTER 2022-11-09 17:07 | Emergency (ER) | payer MEDICARE, MEDICAID, SELFPAY ==
[2022-11-09 17:11] VITALS: BP 145/95; PULSE 79; RESP 22; TEMP 36.9; O2SAT 98; BMI 21.7
[2022-11-09 17:16] VITALS: RESP 16; O2SAT 95
[2022-11-09] MEDS: ketorolac 30 mg/mL INJ IVP (17:16)
[2022-11-09] MEDS: HYDROmorphone 1 mg/mL INJ 1 mL IVP ×2 (17:16→18:45)
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
[2022-11-09] MEDS: silver sulfadiazine cream 1% 50 gm 1 APPLIC TOPICAL (18:03)
[2022-11-09 18:07] VITALS: BP 127/91; PULSE 65; RESP 18; O2SAT 97
[2022-11-09 18:45] VITALS: RESP 16; O2SAT 96
[2022-11-09 19:22] VITALS: BP 118/79; PULSE 68; RESP 16; O2SAT 95
[2022-11-09 19:55] VITALS: BP 114/80; PULSE 68; RESP 16; O2SAT 94
--- NOTE | 2022-11-14 14:25 | DCPLANNER ---
legal operations manager was triggered to call patient due to no primary care physician - patient sees Lucina Childers at the [facility].
== END 2022-11-09 19:58 | disposition home or self-care (01) ==
PROVIDERS: Emergency Provider Emergency Medicine; PCP Nurse Practitioner Family
DX: T22.212A Burn of second degree of left forearm, initial encounter (principal); T20.10XA Burn of first degree of head, face, and neck, unspecified site, initial encounter; X16.XXXA Contact with hot heating appliances, radiators and pipes, initial encounter
CPT/HCPCS: 96374; 96375; 96376; 99284; J1170; J1885

== ENCOUNTER → 2024-01-15 12:44 | Outpatient (BNVA) | payer MEDICAID, SELFPAY | PROVIDERS: PCP Nurse Practitioner Family; Visit Provider Family Medicine | DX: R10.9 Unspecified abdominal pain (principal); B18.2 Chronic viral hepatitis C; K59.09 Other constipation | CPT/HCPCS: 80053; 80061; 85025; 87522 ==

== ENCOUNTER 2024-01-19 07:44 | Outpatient (CLI) | payer MEDICAID, SELFPAY ==
--- NOTE | 2024-01-19 08:00 | CT_ITS ---
WS: [id number] CT ABDOMEN PELVIS TECHNIQUE: Contrast-enhanced CT of the abdomen and pelvis with coronal and sagittal reformatted image s. CLINICAL INFORMATION: R10.9 - Unspecified abdominal pain COMPARISON: 04/20/2022 DLP: 313.[address] scans at [facility] use at least one of these dose optimization techniques: automated e xposure control; mA and/or kV adjustment per patient size (includes targeted exams where dose is matc hed to clinical indication); or iterative reconstruction. FINDINGS: Hepatomegaly. Mild intrahepatic biliary ductal dilatation. Portal vein is patent. Splenic vein is pat ent. Prior cholecystectomy. Emphysematous changes in the lung bases. Normal GE junction. Diffuse tacho lxei rugal thickening can be seen with gastritis. Normal pancreatic parenchymal enhancement. Celiac and SMA are patent. Normal caliber abdominal aorta. Mild aortic calcification. A few prominent subcentimeter para-aortic lymph nodes unchanged compared to previous. Adrenal glands are normal. No hydronephrosis. Bilateral renal cysts. Enlarged prostate measuring 3.9 x 3.2 cm. Recommend correlation PSA. Tiny fat-containing umbilical he rnia. No evidence of small or large bowel obstruction. Mild constipation in the transverse colon. Shruthi or appendectomy. A few fluid distended loops of small bowel in the pelvis with mild submucosal enhanc ement can be seen with small bowel enteritis. No other acute findings. CT/CT abdomen pelvis w con* [id number] IMPRESSION: 1. Hepatomegaly with mild intrahepatic biliary ductal dilatation similar to pr evious. 2. Prior cholecystectomy and appendectomy. 3. A few fluid distended enhancing small bowel loops in the pelvis can be seen with small bowel enteritis. 4. Enlarged prostate. Recommend correlation PSA. 5. Bilateral renal cysts. No hydronephrosis. 6. Enhancement with gastric rugal thickening can be seen with gastritis. 7. No other significant interval changes.
[2024-01-19] MEDS: iohexol 350 mg/mL 500 mL Btl (per mL) IV (08:06)
== END 2024-01-19 07:45 | disposition home or self-care (01) ==
LOC: RAD 07:47
PROVIDERS: PCP Nurse Practitioner Family; Visit Provider Family Medicine
DX: K52.9 Noninfective gastroenteritis and colitis, unspecified (principal); R16.0 Hepatomegaly, not elsewhere classified; N40.0 Benign prostatic hyperplasia without lower urinary tract symptoms; J43.9 Emphysema, unspecified; K31.89 Other diseases of stomach and duodenum; Q61.02 Congenital multiple renal cysts; B18.2 Chronic viral hepatitis C; Z90.49 Acquired absence of other specified parts of digestive tract
CPT/HCPCS: 74177; 80053; 80061; 85025; 87522

== ENCOUNTER 2024-01-22 14:05 | Emergency (ER) | payer MEDICAID, SELFPAY ==
[2024-01-22 14:14] VITALS: BP 144/93; PULSE 81; RESP 18; TEMP 36.4; O2SAT 96; BMI 21.2
--- NOTE | 2024-01-22 14:51 | PC.NURSE ---
PATIENT VERY UPSET WITH NURSING STAFF BECAUSE PATIENT DID NOT HAVE BED READILY AVAILABLE WHEN PRESENTING TO THE ER. TRIAGE NURSE, JACK TOLEDO, TRIED TO EXPLAIN TRIAGE PROCESS AND DIRECT ADMIT PROCESS AND PATIENT STILL WANTED TO SPEAK TO ANOTHER NURSE. THIS NURSE WENT TO SPEAK TO PATIENT IN WAITING ROOM. NURSE VERBALIZED THAT IN ORDER FOR A DIRECT ADMIT TO OCCUR, PATIENT PROVIDER WOULD NEEDED TO CALL HOUSE SUP AND THAT DID NOT OCCUR. PATIENT STATES WHAT AM I SUPPOSED TO DO? PATIENT STATES THAT HE CANNOT SIT DOWN OR STAND UP DUE TO PAIN. PATIENT STATES LYING IS THE ONLY THING THAT IS COMFORTABLE. NURSE EXPLAINED THAT DISCHARGES ARE OCCURRING AND THAT PATIENT WOULD HAVE ROOM SHORTLY. PATIENT STATES I'M JUST GOING TO WALK DOWN THE WAY AND CALL AN AMBULANCE SO I CAN GET A ROOM. NURSE EXPLAINS THAT AT CURRENT CAPACITY THE PATIENT WOULD STILL PRESENT BACK TO TRIAGE AND THE WAITING ROOM THERE ARE NO BEDS AVAILABLE IN THE BACK. PATIENT STATES I WAS TOLD I WOULD HAVE A ROOM READILY AVAILABLE BY MY DOCTOR WHEN I SHOWED UP TO THE ER. NURSE APOLOGIZES TO PATIENT FOR BEING MISINFORMED BY PROVIDER BUT WE HAVE DISCHARGES OCCURRING AND THAT I WOULD HAVE A ROOM AVAILABLE SHORTLY. PATIENT APOLOGIZED FOR BEING RUDE AND STATED THAT HE WAS JUST IN PAIN. NURSE APOLOGIZED FOR PAIN AND WOULD GET PATIENT BACK QUICKLY.
--- NOTE | 2024-01-22 14:58 | PC.NURSE ---
pt agitation pt very upset d/t his clinic allegedly telling him he would have a room waiting on him when he got here. this nurse explained that we have an acuity system and unless the clinic physician spoke with a doctor here for a direct admission, he would have to be seen through the er. pt states he is in too much pain to wait. this nurse stated he was free to walk or sit whichever position was more comfortable. he told me i was out of my mind and he wanted to speak to a automotive fleet supervisor.
--- NOTE | 2024-01-22 15:10 | XRR_ITS ---
PROCEDURE INFORMATION: Exam: XR Chest Exam date and time: 01/22/2024 3:20 PM Age: 68 years old Clinical indication: Other: Abd pain TECHNIQUE: Imaging protocol: Radiologic exam of the chest. Views: 1 view. COMPARISON: CR XR chest 1V portable [id number] 05/28/2020 10:19 AM FINDINGS: Lungs: Apical emphysematous change is noted. No consolidation. Pleural spaces: Unremarkable. No pleural effusion. No pneumothorax. Heart/Mediastinum: Unremarkable. No cardiomegaly. Bones/joints: No acute findings. Other findings: Visualized upper abdominal contents are unremarkable. XR/XR chest 1V portable [id number] IMPRESSION: No acute findings.
--- NOTE | 2024-01-22 15:11 | ECG_ITS ---
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 Measurements Intervals [place] Rate: 71 P: 93 MA: 161 QRS: 84 QRSD: 86 T: 78 QT: 362 QTc: 394 Interpretive Statements SINUS RHYTHM Compared to ECG 04/20/2022 14:54:46 No significant changes Electronically Signed On 01-22-2024 21:19:01 MANAGER ETL by Adan Frye M.D. [id number]
--- NOTE | 2024-01-22 15:12 | ED_ITS ---
HPI - Abdominal Pain 2 General: Chief Complaint: Abdominal Pain Stated Complaint: Abd pain Time Seen by Provider: 01/22/24 15:08 History of Present Illness: 68-year-old male presents emergency room complaining of left-sided flank pain he isolates the pain to the edge of his ribs on exam later noted that the tip of the 11th rib. He states it has been there for nearly a year it has been quite a bit worse the last couple of days. Has not had any dysuria urgency or frequency no hematuria. He did have a small amount of blood on the toilet paper after he attempted to have a bowel movement 2 weeks ago. He had a CT of his abdomen That was done 3 days ago showed some gastric changes. Some mild hepatomegaly some intrahepatic ductal dilatation that was unchanged has prior previously had a cholecystectomy and appendectomy. He had some nonspecific changes of small bowel in the stomach that was thought to be gastritis. He denies any hematemesis. He has not taken anything for the pain. He is on pantoprazole. He has been constipated lately and is also taking MiraLAX. He denies fever sweats or chills. Associated Symptoms: Denies chills, dysuria and fever(s) Related Data Previous Rx's Medication Instructions Recorded docusate calcium 240 mg capsule 240 mg PO BID PRN constipation #60 01/15/24 (Stool Softener (docusate calcium)) caps pantoprazole 40 mg tablet,delayed 40 mg PO DAILY #30 tabs 01/15/24 release cefdinir 300 mg capsule 300 mg PO BID 10 days #20 caps 01/22/24 hydrocodone 5 mg-acetaminophen 325 1 tab PO Q6H PRN pain #15 tabs 01/22/24 mg tablet prednisone 20 mg tablet 20 mg PO TID #15 tabs 01/22/24 Allergies Allergy/AdvReac Type Severity Reaction Status Date / Time No Known Allergies Allergy Verified 11/14/22 09:36 Review of Systems 2 Const: Denies: fever(s) or chills Card: Denies: chest pain Resp: Denies: dyspnea GI: Denies: abdominal pain : Denies: dysuria, urinary frequency or urinary urgency Musc: Denies: neck pain or back pain Skin/Breast: Denies: rash PFSH ED 2 PFSH: Medical History COPD (chronic obstructive pulmonary disease) Stroke due to intracerebral hemorrhage Hepatitis C Surgical History No pertinent past surgical history Social History Smoking and tobacco/nicotine status: current every day tobacco/nicotine user cigarettes Packs smoked per day: 1 Years cigarettes smoked: 35 Second hand smoke exposure: No Alcohol intake: never Substance/Drug Use: former Lives independently: Yes Marital status: Current gender identity: Male Physical Exam 2 Const: GENERAL APPEARANCE: cooperative ORIENTATION/CONSCIOUSNESS: Yes awake, Yes oriented to person, Yes oriented to place and Yes oriented to time HENMT: COMMON NORMALS: normocephalic, atraumatic and hearing grossly normal bilaterally HEAD & SCALP: normocephalic and atraumatic Resp: COMMON NORMALS: normal respiratory effort, No retractions, No use of accessory muscles and clear to auscultation bilaterally AUSCULTATION: clear to auscultation bilaterally Cardio: COMMON NORMALS: regular rate, regular rhythm and No murmurs present (Cardio) RATE: regular rate RHYTHM: regular rhythm GI: COMMON NORMALS: Soft to palpation and No hepatosplenomegaly present A USCULTATION: Yes normoactive bowel sounds PALPATION: Yes Soft to palpation, No Tenderness to palpation present (GI), No Guarding due to palpation present (GI) and Yes No hepatosplenomegaly present OTHER: Pain reproducible with palpation along the point of his 11th rib. No hernia present. Extremity: COMMON NORMALS: normal to inspection, capillary refill normal, no clubbing, cyanosis or edema, no calf tenderness and no pedal edema Neuro: SENSORIUM/ORIENTATION: Yes oriented to person, Yes oriented to place and Yes oriented to time Skin: COMMON NORMALS: no rashes or lesions noted GENERAL SKIN EXAM: no rashes or lesions noted Course 2 Vital Signs: Vital signs: Vital Signs Temperature 97.6 F 01/22/24 14:14 Pulse Rate 58 L 01/22/24 17:20 Respiratory Rate 18 01/22/24 16:20 Blood Pressure 120/86 01/22/24 17:20 Pulse Oximetry 97 01/22/24 17:20 MDM - Abdominal Pain Medical Decision Making Patient has reproducible pain with palpation over the tip of the 10th rib. Seems more musculoskeletal in nature. There is no demonstrable hernia. CT reviewed from a couple days ago the remainder of his abdominal exam is benign he has no leukocytosis he does have signs of possible cystitis so I do not think that the cause of his main pain at this time point. Will go and discharge patient home gave him steroids hydrocodone for pain also gave him cefdinir to start for his bladder infection till the culture results. Medical Records I reviewed the patient's medical records. Lab Data I reviewed the patient's lab results. 01/22/24 15:02 01/22/24 15:02 Labs/Radiology: Radiology Impressions Chest X-Ray 01/22/24 15:10 IMPRESSION: No acute findings. Laboratory Results WBC 7.82 10^3/uL (3.29-11.43) 01/22/24 15:02 RBC 5.30 10^6/uL (3.85-5.65) 01/22/24 15:02 Hgb 15.60 g/dL (11.27-16.99) 01/22/24 15:02 Hct 47.2 % (37-53) 01/22/24 15:02 MCV 89.1 fl (82-101) 01/22/24 15:02 MCH 29.4 pg (27-33) 01/22/24 15:02 MCHC 33.1 g/dL (30-55) 01/22/24 15:02 RDW 13.6 % (12.1-15.1) 01/22/24 15:02 Plt Count 174 10^3/cmm (157-399) 01/22/24 15:02 MPV 10.7 fL (7.4-10.4) H 01/22/24 15:02 Neut % (Auto) 38.0 % 01/22/24 15:02 Lymph % (Auto) 52.3 % 01/22/24 15:02 Rooks % (Auto) 6.9 % 01/22/24 15:02 Eos % (Auto) 1.8 % 01/22/24 15:02 Baso % (Auto) 0.9 % 01/22/24 15:02 Neut # (Auto) 2.97 10^3/uL (1.8-7.7) 01/22/24 15:02 Lymph # (Auto) 4.1 10^3/uL (0.8-4.8) 01/22/24 15:02 Rooks # (Auto) 0.5 10^3/uL (0.2-0.9) 01/22/24 15:02 Eos # (Auto) 0.1 10^3/uL (0.0-0.8) 01/22/24 15:02 Baso # (Auto) 0.1 10^3/uL (0.0-0.1) 01/22/24 15:02 Nucleated RBC % (auto) 0 % 01/22/24 15:02 Nucleated RBCs # 0.0 /100WBC 01/22/24 15:02 Sodium 141 mmol/L (136-145) 01/22/24 15:02 Potassium 4.5 mmol/L (3.5-5.1) 01/22/24 15:02 Chloride 103 mmol/L (98-107) 01/22/24 15:02 Carbon Dioxide 27 mmol/L (22-29) 01/22/24 15:02 Anion Gap 15.5 (5-19) 01/22/24 15:02 BUN 12 mg/dL (8-23) 01/22/24 15:02 Creatinine 0.8 mg/dL (0.7-1.2) 01/22/24 15:02 GFR Calculation 96.7 mL/min (90-130) 01/22/24 15:02 Glucose 100 mg/dL (65-115) 01/22/24 15:02 Calculated Osmolality 292 mOsm/kg (285-295) 01/22/24 15:02 Lactic Acid 1.4 mmol/L (0.5-2.2) 01/22/24 15:02 Calcium 9.3 mg/dL (8.5-10.5) 01/22/24 15:02 Magnesium 2.0 mg/dL (1.7-2.3) 01/22/24 15:02 Total Bilirubin 0.2 mg/dL (0.15-1.2) 01/22/24 15:02 AST 26 U/L (0-40) 01/22/24 15:02 ALT 29 U/L (0-41) 01/22/24 15:02 Alkaline Phosphatase 76 U/L (40-130) 01/22/24 15:02 Total Protein 8.5 g/dL (6.6-8.7) 01/22/24 15:02 Albumin 4.5 g/dL (3.5-5.2) 01/22/24 15:02 Globulin 4.0 g/dL (1.3-4.6) 01/22/24 15:02 Lipase 33 U/L (13-60) 01/22/24 15:02 Urine Color Yellow (Yellow) 01/22/24 15:07 Urine Appearance Cloudy (CLEAR) A 01/22/24 15:07 Urine pH 5.5 (5-7) 01/22/24 15:07 Ur Specific [place] 1.008 (1.005-1.030) 01/22/24 15:07 Urine Protein Negative (Negative) 01/22/24 15:07 Urine Glucose (UA) Negative (Normal) 01/22/24 15:07 Urine Ketones Negative (Negative) 01/22/24 15:07 Urine Blood Negative (Negative) 01/22/24 15:07 Urine Nitrate Negative (Negative) 01/22/24 15:07 Urine Bilirubin Negative (Negative) 01/22/24 15:07 Urine Urobilinogen 0.2 mg/dL (Negative) 01/22/24 15:07 Ur Leukocyte Esterase 1+ (Negative) A 01/22/24 15:07 Urine RBC 0-2 /hpf (0-2) 01/22/24 15:07 Urine WBC 6-10 /hpf (0-5) 01/22/24 15:07 Ur Squamous Epith Cells 0-5 /hpf (0-5) 01/22/24 15:07 Amorphous Sediment Not Reportable 01/22/24 15:07 Urine Bacteria None seen /hpf (NONE) 01/22/24 15:07 Hyaline Casts 0-4 /lpf H 01/22/24 15:07 Coronavirus (PCR) Negative (Negative) 01/22/24 15:35 Influenza A (PCR) Negative (Negative) 01/22/24 15:35 Influenza Type B (PCR) Negative (Negative) 01/22/24 15:35 RSV (PCR) Negative (Negative) 01/22/24 15:35 All radiology interpretation(s) finalized by discharge Discharge Plan Discharge Patient Disposition: Home Clinical Impression: Acute flank pain, Cystitis Condition: Stable Prescriptions: New hydrocodone-acetaminophen 5-325 mg tablet 1 tab PO Q6H PRN (Reason: pain) Qty: 15 0RF prednisone 20 mg tablet 20 mg PO TID Qty: 15 0RF Rx Instructions: 1 p.o. 3 times daily x3 days, 1 p.o. twice daily x2 days, 1 p.o. daily x2 days cefdinir 300 mg capsule 300 mg PO BID 10 Days Qty: 20 0RF No Action pantoprazole 40 mg tablet,delayed release (DR/EC) 40 mg PO DAILY Qty: 30 0RF Stool Softener (docusate elana) 240 mg capsule 240 mg PO BID PRN (Reason: constipation) Qty: 60 0RF Discharge Orders: Discharge ED (Routine); Ordered 01/22/24 Ordered By: Weston Serrano Referrals: Lucina Childers FNP [Primary Care Provider] - Discharge Diet: Usual diet Discharge Activity: Resume usual activity Patient Instructions: Opioid Safety, Pain Management Activity Restrictions/Additional Instructions: Thank you for choosing [facility] for your healthcare needs today. It is very important that you follow up as instructed or that you return to the Emergency Department should you have concerns or if your condition changes or worsens in any way. You are seen in the emergency room with complaint of flank pain. The pain is point tender over the portion of one of your lower ribs. Suspect you may have a dermatomal pain pattern there is no evidence of zoster. This may come from an impinged nerve in the lower thoracic or upper lumbar region. You should discuss this with your primary care doctor advanced imaging can be done if felt appropriate. Incidental finding of a bladder infection recommend you start oral antibiotic 1 pill twice a day for 10 days you were given pain medications to use as needed and a prednisone taper to start tomorrow. Coding Level of Care Code ED [employer] for [employer]
[2024-01-22 15:19] LABS: Basophils # 0.1 10^3/uL (0.0-0.1); Basophils % 0.9 %; Eosinophils # 0.1 10^3/uL (0.0-0.8); Eosinophils % 1.8 %; Hematocrit 47.2 % (37-53); Lymphocytes # 4.1 10^3/uL (0.8-4.8); Lymphocytes % 52.3 %; Mean Corpuscular HGB Conc 33.1 g/dL (30-55); Mean Corpuscular Hemoglobin 29.4 pg (27-33); Mean Corpuscular Volume 89.1 fl (82-101); Mean Platelet Volume 10.7 fL (7.4-10.4); Monocytes # 0.5 10^3/uL (0.2-0.9); Monocytes % 6.9 %; Neutrophils # 2.97 10^3/uL (1.8-7.7); Nucleated Red Blood Cells % 0 %; Platelet Count 174 10^3/cmm (157-399); Red Cell Distribution Width 13.6 % (12.1-15.1); White Blood Count 7.82 10^3/uL (3.29-11.43)
[2024-01-22 15:31] LABS: Bilirubin Urine Negative (Negative); Blood Urine Negative (Negative); Glucose Urine UA Negative (Normal); Ketones Urine Negative (Negative); Leukocyte Esterase Urine 1+ (Negative); Nitrate Urine Negative (Negative); Protein Urine Negative (Negative); Specific Gravity, Urine 1.008 (1.005-1.030); Urine Appearance Cloudy (CLEAR); Urine Color Yellow (Yellow); Urobilinogen Urine 0.2 mg/dL (Negative); pH Urine 5.5 (5-7)
[2024-01-22 15:34] LABS: Alanine Aminotransferase 29 U/L (0-41); Albumin Level 4.5 g/dL (3.5-5.2); Alkaline Phosphatase 76 U/L (40-130); Anion Gap 15.5 (5-19); Aspartate Amino Transferase 26 U/L (0-40); Blood Urea Nitrogen 12 mg/dL (8-23); Calcium 9.3 mg/dL (8.5-10.5); Carbon Dioxide 27 mmol/L (22-29); Chloride 103 mmol/L (98-107); Creatinine Clr Calc Pharmacy 96.4128; Glomerular Filtration Rate 96.7 mL/min (90-130); Glucose 100 mg/dL (65-115); Lipase 33 U/L (13-60); Osmolality Calculated 292 mOsm/kg (285-295); Potassium 4.5 mmol/L (3.5-5.1); Sodium 141 mmol/L (136-145); Total Bilirubin 0.2 mg/dL (0.15-1.2); Total Protein 8.5 g/dL (6.6-8.7)
[2024-01-22 15:35] LABS: Lactic Sepsis W/Reflex 1.4 mmol/L (0.5-2.2)
[2024-01-22 15:37] LABS: Add Urine Microscopic? YES; Bacteria Urine None Seen /hpf; Hyaline Casts Urine 0-4 /lpf; RBC Urine 0-2 /hpf (0-2); Squamous Epithelial Cell Urine 0-5 /hpf (0-5)
[2024-01-22 15:42] LABS: Add Urine Culture? No
[2024-01-22 16:20] VITALS: RESP 18
[2024-01-22] MEDS: morphine 4 mg/mL SDV 1 mL IVP (16:20)
[2024-01-22] MEDS: ondansetron 2 mg/ML SDV 2 mL 4 MG IVP (16:20)
[2024-01-22] MEDS: dexamethasone 10 mg/mL INJ IM (16:20)
[2024-01-22] MEDS: cefTRIAXone 1,000 mg SDV 1000 MG IVP (16:23)
[2024-01-22 16:34] LABS: Covid PCR NEGATIVE (Negative); Influenza A NEGATIVE (Negative); Influenza B NEGATIVE (Negative); Respiratory Syncytial Virus Ce NEGATIVE (Negative)
[2024-01-22 17:20] VITALS: BP 120/86; PULSE 58; O2SAT 97
== END 2024-01-22 17:22 | disposition home or self-care (01) ==
PROVIDERS: Emergency Provider Family Medicine; PCP Nurse Practitioner Family
DX: N30.90 Cystitis, unspecified without hematuria (principal); F17.210 Nicotine dependence, cigarettes, uncomplicated; J44.9 Chronic obstructive pulmonary disease, unspecified; Z86.73 Personal history of transient ischemic attack (TIA), and cerebral infarction without residual deficits
CPT/HCPCS: 0241U; 71045; 80053; 81001; 83605; 83690; 83735; 85025; 93005; 96374; 96375; 99285; J0696; J1100; J2270; J2405

== ENCOUNTER → 2024-02-19 14:01 | Outpatient (BNVA) | payer MEDICARE, MEDICAID, SELFPAY | PROVIDERS: PCP Nurse Practitioner Family; Visit Provider Family Medicine | DX: B18.2 Chronic viral hepatitis C (principal) | CPT/HCPCS: 86705; 86706; 87340; 87806; 87902 ==

== ENCOUNTER → 2024-05-21 11:36 | Outpatient (BNVA) | payer MEDICARE, MEDICAID, SELFPAY | PROVIDERS: PCP Nurse Practitioner Family; Visit Provider Nurse Practitioner Family | DX: M54.50 Low back pain, unspecified (principal) | CPT/HCPCS: 81000 ==

== ENCOUNTER → 2025-02-17 13:41 | Outpatient (BNVA) | payer MEDICARE, MEDICAID, SELFPAY | PROVIDERS: Visit Provider Family Medicine | DX: R82.998 Other abnormal findings in urine (principal); B18.2 Chronic viral hepatitis C | CPT/HCPCS: 80053; 81003; 87522 ==